=== PATIENT | male | born 1945 | race Caucasian/White ===

== ENCOUNTER 2017-10-04 18:16 | Inpatient (IN) | payer OTHER, MEDICARE, SELFPAY ==
[2017-10-04] VITALS (7 sets, daily range): BP systolic 100–127; BP diastolic 55–85; PULSE 85–93; RESP 18–28; TEMP 36.6; O2SAT 94–97; BMI 34.7; BMI 35.0
--- NOTE | 2017-10-04 20:05 | RAD_ITS ---
STUDY: X-RAY CHEST REASON FOR EXAM: Male, 72 years old. Shortness of breath TECHNIQUE: A single frontal view of the chest was obtained. COMPARISON: September 30, 2017 FINDINGS: The lungs are underaerated. There is dense opacity in the mid and lower left lung. The left costophrenic angle is obscured. There is mild enlargement of the cardiac silhouette. Sternotomy wires are present. The mediastinum and hilar regions are unremarkable. The central vessels are indistinct. An aortic stent graft is again seen in the thoracic aorta. There are diffuse degenerative changes of the visualized thoracic spine. There are surgical clips in the right axilla. There is no demonstrated abnormality of the visualized upper abdomen. RAD/Chest 1 View (Portable) IMPRESSION: There are increased opacities in the mid and lower left lung, and consolidation/pneumonia may be present. There is likely a small left effusion. There is stable mild enlargement of the cardiac silhouette with vascular congestion. Electronically Signed: Hilda Chandler MD at 21:11 EST Tel Direct: [phone], Service support ,
--- NOTE | 2017-10-04 20:05 | EKG12_ITS ---
Test Reason : SOB Blood Pressure : / mmHG Vent. Rate : 085 BPM Atrial Rate : 085 BPM P-R Int : 194 ms QRS Dur : 132 ms QT Int : 418 ms P-R-T Axes : 025 -52 048 degrees QTc Int : 497 ms Sinus rhythm with occasional Premature ventricular complexes Right bundle branch block Left anterior fascicular block Bifascicular block Abnormal ECG Confirmed by CONSUELO SANTOS, KILLIAN ([id number]), editor & co founder DOUG ROSALES ([id number] on 10/07/2017 3:02:53 PM Referred By: KASH Confirmed By:KILLIAN CORDERO MD
[2017-10-04] MEDS: 0.9% Normal Saline 1,000 ML 150 ML IV (20:16)
[2017-10-04 20:18] LABS: Absolute Lymphocyte Count 1.82 X10^3/ul (0.83-4.51); Basophil# 0.03 X10^3/uL; Basophil% 0.2 % (0-1); Eosinophil# 0.13 X10^3/uL; Hematocrit 43.4 % (40-54); Hemoglobin 14.4 g/dl (13.0-16.5); Lymphocyte # 1.82 X10^3/ul (4.0); Lymphocyte % 13.8 % (19-41); Mean Corp Hgb Conc 33.2 g/gl (32-36); Mean Corpuscular Hgb 30.2 pg (27.0-32.0); Mean Platelet Vol. 9.6 fl (6.2-12.0); Monocyte% 8.3 % (0-10); Neutrophil # 10.01 X10^3/uL (2.7-7.7); Neutrophil % 75.8 % (47-70); Platelet Count 276 K/mm3 (150-450); RBC Distribution Width CV 15.2 % (11.6-14.6); RBC Distribution Width SD 50.8 fl (35.1-43.9); Red Blood Count 4.77 M/mm3 (4.6-6.2); White Blood Count 13.2 K/mm3 (4.4-11.0)
[2017-10-04 20:30] LABS: Lactic Acid 1.2 mmol/L (0.4-2.0)
[2017-10-04 20:32] LABS: Anion Gap 9 (5-15); BUN 20 mg/dL (7-18); BUN/Creat Ratio 16.3 RATIO (10-20); Calcium,Total 8.4 mg/dL (8.5-10.1); Chloride 105 mmol/L (98-107); Creatinine, Serum 1.23 mg/dL (0.70-1.30); EST Glomerular Filtration Rate 61 mL/min (>60); Est Glom Filt Rate - Afr Amer 74 mL/min (>60); Estimated Creatinine Clearance 64.69 ml/min; Glucose 122 mg/dL (70-110); Potassium 3.7 mmol/L (3.5-5.1); Sodium Level 141 mmol/L (136-145)
[2017-10-04 20:53] LABS: BNP,B-Type NATRIURETIC PEPTIDE 156.8 pg/mL (0-100)
[2017-10-04 20:58] LABS: POSITIVE COUNT NO; POSITIVE DIFFERENTIAL NO; POSITIVE MORPHOLOGY NO
--- NOTE | 2017-10-04 21:26 | ED.VISSUMM ---
- ER Visit Summary Date of Service: 10/04/17 Chief Complaint: [Shortness of breath and hypotension] History of Present Illness: The patient is a 72 M [since the emergency department with complaint of not feeling well. Patient apparently had a low blood pressure at home of 88/50. Patient was just discharged from the hospital 2 days ago after being treated for sepsis and pneumonia. Patient states that his fever started coming back today and got up to 99 and was climbing that is when his gave him some Tylenol. Patient continues to cough but the sputum seems to be mostly clear. To take his Levaquin at home. Patient denies any chest pain. Physical Examination: [HEENT-PERRLA, EOMI. Cranial nerves II through XII grossly intact. TMs clear. Mucous membranes moist. No adenopathy. Cardiovascular-regular rate and rhythm without murmur or ectopy Lungs-diminished in both bases left greater than right. Patient has rales in both bases. Mild tachypnea, no accessory muscle use or retractions. Abdomen-normoactive bowel sounds, soft, nontender, no rebound or rigidity, no peritoneal signs. Extremities-intact ?4, normal range of motion, normal pulses, atraumatic] Test Results: [EKG on arrival showed a sinus rhythm with a ventricular rate of 85 bpm with occasional PVCs. Patient had a right bundle branch block and a left anterior fascicular block noted. CBC with differential showed a white count of 13, hemoglobin 14, hematocrit 43, platelets 276. Chemistry is unremarkable. Troponin was less than 0.02. Lactate was 1.2. BNP was 156. Chest x-ray showed increased opacities of the left lower lung with pneumonia/consolidation and bilateral small effusions noted.] Emergency Department Course and Treatment: [Patient was treated with Rocephin, Zithromax, and Levaquin.] Treatment Plan: [Patient will be readmitted for worsening pneumonia and failed outpatient therapy.] Disposition: Admit [] Impression: [Pneumonia now healthcare acquired-failed outpatient therapy Hypotension] This note was generated with [employer] dictation software. It may contain incorrect words, spelling, and punctuation that were not noted in review of the chart prior to signing ED Disposition - Plan for ED Patient: Chief Complaint: Shortness of Breath Referrals: Daniel Foster [Primary Care Provider] -
--- NOTE | 2017-10-04 21:29 | ED.DCSUM_ITS ---
- ER Visit Summary Date of Service: 10/04/17 Chief Complaint: [Shortness of breath and hypotension] History of Present Illness: The patient is a 72 M [since the emergency department with complaint of not feeling well. Patient apparently had a low blood pressure at home of 88/50. Patient was just discharged from the hospital 2 days ago after being treated for sepsis and pneumonia. Patient states that his fever started coming back today and got up to 99 and was climbing that is when his gave him some Tylenol. Patient continues to cough but the sputum seems to be mostly clear. To take his Levaquin at home. Patient denies any chest pain. Physical Examination: [HEENT-PERRLA, EOMI. Cranial nerves II through XII grossly intact. TMs clear. Mucous membranes moist. No adenopathy. Cardiovascular-regular rate and rhythm without murmur or ectopy Lungs-diminished in both bases left greater than right. Patient has rales in both bases. Mild tachypnea, no accessory muscle use or retractions. Abdomen-normoactive bowel sounds, soft, nontender, no rebound or rigidity, no peritoneal signs. Extremities-intact ?4, normal range of motion, normal pulses, atraumatic] Test Results: [EKG on arrival showed a sinus rhythm with a ventricular rate of 85 bpm with occasional PVCs. Patient had a right bundle branch block and a left anterior fascicular block noted. CBC with differential showed a white count of 13, hemoglobin 14, hematocrit 43, platelets 276. Chemistry is unremarkable. Troponin was less than 0.02. Lactate was 1.2. BNP was 156. Chest x-ray showed increased opacities of the left lower lung with pneumonia/ consolidation and bilateral small effusions noted.] Emergency Department Course and Treatment: [Patient was treated with Rocephin, Zithromax, and Levaquin.] Treatment Plan: [Patient will be readmitted for worsening pneumonia and failed outpatient therapy.] Disposition: Admit [] Impression: [Pneumonia now healthcare acquired-failed outpatient therapy Hypotension] This note was generated with [employer] dictation software. It may contain incorrect words, spelling, and punctuation that were not noted in review of the chart prior to signing ED Disposition - Plan for ED Patient: Chief Complaint: Shortness of Breath Referrals: Daniel Foster [Primary Care Provider] -
--- NOTE | 2017-10-04 21:35 | HP.PCM_ITS ---
Problem List (1) Dyslipidemia Status: Chronic (2) Essential (primary) hypertension Status: Chronic (3) H/O thoracic aortic aneurysm repair Status: Chronic (4) Obesity (BMI 30.0-34.9) Status: Chronic History of Present Illness Date of Admission: 10/04/17 Chief Complaint: Fever, decreased BP at home, recent discharge w/ CAP The patient is a 72 y/o M w/ PMHx: Obesity, HLD, HLT, Hx Thoracic Aortic Aneurysm s/p repair who presents to the [facility] ED on 10/04/17 w/ history of being released the day prior following evaluation and treatment for PNA, Sepsis w/ onset today recurrent fevers, worsened dyspnea and lower BPs at home (SBP 80s) and continued ongoing coughing although not markedly productive. In the ED VS T 97.9 (last tylenol 1600), HR 86, BP 100/55-->110/77, RR 28-->20, 94% on RA, CBC w/ WBC 13.2, Hgb 14.4, Plts 276 with L shift, BMP w/ BUN/Cr 20/1.23, Glucose 122 , LA 1.2, trop <0.02, BNP 156.8, CXR w/ increased opacities mid and lower left lung and consolidation possibly present, small left effusion, stable cardiac silhouette with mild vascular congestion. In the ED patient administered Vanc and Zosyn. Past Medical History Past Medical History (Chronic Problems): Chronic Problems Obesity (BMI 30.0-34.9) (Chronic) Dyslipidemia (Chronic) Essential (primary) hypertension (Chronic) H/O thoracic aortic aneurysm repair (Chronic) Allergies No Known Allergies Allergy (Verified 10/04/17 18:18) Home Medications: Ambulatory Orders Medication Instructions Recorded Amlodipine [Norvasc] 10 mg PO DAILY 09/27/16 Ascorbic Acid [Vitamin C] 1,000 mg PO DAILY 09/27/16 Aspirin [Aspirin, Baby] 81 mg PO DAILY@0800 09/27/16 Atorvastatin Calcium [Lipitor] 20 mg PO QHS 09/27/16 Cabergoline 2 tab PO TUFR 09/27/16 Losartan/Hydrochlorothiazide 1 each PO BREAKFAST 09/27/16 [Losartan-Hctz 100-25 mg Tab] Metoprolol Tartrate [Lopressor 50 mg PO BID 09/27/16 (beta ashutosh)] Multivitamins,Therapeutic 1 tablet PO DAILY 09/27/16 [Multivitamin] Gill-3 Fatty Acids/Fish Oil 1 each PO DAILY 09/27/16 [Gill 3 1,000 mg Softgel] Acetaminophen [Tylenol Tablet] 650 mg PO Q6H PRN PRN tablet 10/02/17 Guaifenesin [Mucinex] 1,200 mg PO BID #20 tablet 10/02/17 Levofloxacin [Levaquin] 750 mg PO DAILY #5 tablet 10/02/17 Potassium Chloride [K-Dur] 20 meq PO BIDCM #60 tablet 10/02/17 Surgical History: - - TAA repair Psychiatric History: No pertinent psych hx Lives: Spouse/ Significant Other Smoking Status: Former smoker Tobacco Use: Non-smoker Alcohol: None Drugs: None - *Family History Maternal History Items: No pertinent history Paternal History Items: No pertinent history Review of Systems Constitutional: Reports: Anorexia, Chills, Fever, Malaise, Weakness, Fatigue. Denies: Weight Change HEENT: Denies: Head Aches, Sinus Congestion, Sinus Drainage Cardiovascular: Denies: Chest Pain, Palpitations Respiratory: Reports: Cough, Shortness of Breath, Shortness of breath at rest, Shortness of breath upon exertion, Sputum production Gastrointestinal: Denies: Abdominal Pain, Nausea, Vomiting Genitourinary: Denies: Dysuria Musculoskeletal: Denies: Joint Pain, Joint Tenderness Skin: Denies: Rash, Wounds Neurological: Denies: Numbness, Tingling, Focal weakness Psychiatric: Denies: Anxiety, Depression, Homicidal Ideations, Suicidal Ideations Hematologic/ Lymphatic: Denies: Easy Bruising, Easy Bleeding VTE Information - Inpt Only VTE Present on Admission: No VTE Mechan Device Prophylaxis: SCD's VTE Pharm Prophylaxis ordered?: Yes Subjective: Seated upright in the ED bed, fatigued appearance, NAD, BP improved. Objective: Physical Examination: General: awake, alert, oriented x 3 and cooperative, seated upright in the ED bed in no apparent distress. Skin: normal color, turgor, no icterus, cyanosis. HEENT: AT/NC, EOMI, PERRLA, dry MM, lower lip healing/crusted cold sore, BL nare irritation, crusted, no carotid bruits or JVD noted. Lungs: Diminished BS, > L mid to base, moderate effort, anterior mild distant end expiratory wheeze, soft. Heart: Regular rate and rhythm; no gallop, rub audible. Abdomen: soft, obese, NTTP, ND, normal BS, no HSM. Extremities: no cyanosis, clubbing, BL LE ankle edema. Neurological: patient awake, alert, oriented x 3; cognitive function intact; pupils equally reactive to light and accomodation; cranial nerves II-XII grossly normal, moving all 4 extremities, no focal deficits, strength severely globally decreased secondary to acute presentation. Psychiatric: affect appears fatigued, no acute evidence of depressive or anxiety feelings. - Physical Exam Vital Signs Temp Pulse Resp BP Pulse Ox 97.9 F 86 20 110/77 94 10/04/17 18:16 10/04/17 20:16 10/04/17 20:16 10/04/17 20:16 10/04/17 20:16 Oxygen Delivery Method Room Air Weight: 285 lb Body Mass Index (BMI) 34.7 Laboratory Tests Past 24 Hrs 10/04/17 10/04/17 10/04/17 18:48 18:48 18:48 WBC 13.2 H RBC 4.77 Hgb 14.4 Hct 43.4 MCV 91.0 MCH 30.2 MCHC 33.2 RDW 15.2 H RDW Differential 50.8 H Plt Count 276 MPV 9.6 Immature Gran % (Auto) 0.900 Neut % (Auto) 75.8 H Lymph % (Auto) 13.8 L Hardin % (Auto) 8.3 Eos % (Auto) 1.0 Baso % (Auto) 0.2 Absolute Neuts (auto) 10.0 H Absolute Lymphs (auto) 1.82 Total Counted Not Reportable Sodium 141 Potassium 3.7 Chloride 105 Carbon Dioxide 27.0 Anion Gap 9 BUN 20 H Creatinine 1.23 Estim Creat Clear Calc 64.69 Est GFR (MDRD) Af Amer 74 Est GFR (MDRD) Non-Af 61 BUN/Creatinine Ratio 16.3 Glucose 122 H Lactic Acid 1.2 Calcium 8.4 L Troponin I < 0.02 B-Natriuretic Peptide 10/04/17 18:48 WBC RBC Hgb Hct MCV MCH MCHC RDW RDW Differential Plt Count MPV Immature Gran % (Auto) Neut % (Auto) Lymph % (Auto) Hardin % (Auto) Eos % (Auto) Baso % (Auto) Absolute Neuts (auto) Absolute Lymphs (auto) Total Counted Sodium Potassium Chloride Carbon Dioxide Anion Gap BUN Creatinine Estim Creat Clear Calc Est GFR (MDRD) Af Amer Est GFR (MDRD) Non-Af BUN/Creatinine Ratio Glucose Lactic Acid Calcium Troponin I B-Natriuretic Peptide 156.8 H Assessment/Plan The patient is a 72 y/o M w/ PMHx: Obesity, HLD, HLT, Hx Thoracic Aortic Aneurysm s/p repair who presents to the [facility] ED on 10/04/17 w/ history of being released the day prior following evaluation and treatment for PNA, Sepsis w/ onset today recurrent fevers, worsened dyspnea and lower BPs at home (SBP 80s) and continued ongoing coughing although not markedly productive. (1) Recent Sepsis Admission secondary to Streptococcal PNA w/ Streptococcal Bacteremia, Presents w/ Worsened Status s/p Discharge, (Hypotension, Febrile, Increased WBC w/ L shift), Although < 5 days, Treat for HCAP: In the ED VS T 97.9 (last tylenol 1600), HR 86, BP 100/55-->110/77, RR 28-->20, 94% on RA, CBC w/ WBC 13.2, Hgb 14.4, Plts 276 with L shift, BMP w/ BUN/Cr 20/1.23, Glucose 122 , LA 1.2, trop <0.02, BNP 156.8, CXR w/ increased opacities mid and lower left lung and consolidation possibly present, small left effusion, stable cardiac silhouette with mild vascular congestion. Will admit to [facility], maintain on oxygen with wean as tolerated to room air, continue ATC duonebs, PRN albuterol, maintained on IV Zosyn and Vancomycin, HOB, IS parameters, had recent sputum and urine antigens performed but given worsened status will repeat. Requested additionally repeat Bld cx x 2 obtained in the ED. Will need once appropriate AM oxygenation trial for discharge planning daily. Will additionally obtain respiratory viral panel. (2) Hypertension: Holding home regimen given hypotension upon presentation, add back once appropriate. (3) Hyperlipidemia: Continue home statin regimen. (4) Hx Thoracic Aortic Aneurysm: s/p repair. (5) Obesity: Weight loss and lifestyle changes encouraged. (6) DVT Prophylaxis: SCDs, lovenox.
[2017-10-04] MEDS: Ceftriaxone 1 GM/50 ML BAG IV (22:01)
[2017-10-05] VITALS (18 sets, daily range): BP systolic 95–109; BP diastolic 64–70; PULSE 64–104; RESP 18–26; TEMP 36.4–37; O2SAT 93–97
[2017-10-05] MEDS: guaiFENesin 1,200 MG Tablet 1200 MG PO ×3 (00:08→22:02)
[2017-10-05] MEDS: Famotidine 20 MG Tablet PO ×3 (00:08→22:02)
[2017-10-05] MEDS: Piperacil/Tazobactam 3.375 GM/50 ML ML IV ×3 (01:35→22:03)
[2017-10-05] MEDS: Ipratropium/Albuterol Sulfate 3 ML AMPUL.NEB INHALATION ×7 (03:28→22:20)
[2017-10-05 05:48] LABS: Hematocrit 39.2 % (40-54); Hemoglobin 13.1 g/dl (13.0-16.5); Mean Corp Hgb Conc 33.4 g/gl (32-36); Mean Corpuscular Hgb 30.2 pg (27.0-32.0); Mean Corpuscular Volume 90.3 fL (80-94); Mean Platelet Vol. 9.2 fl (6.2-12.0); Platelet Count 281 K/mm3 (150-450); RBC Distribution Width CV 15.3 % (11.6-14.6); RBC Distribution Width SD 50.1 fl (35.1-43.9); Red Blood Count 4.34 M/mm3 (4.6-6.2); White Blood Count 13.3 K/mm3 (4.4-11.0)
[2017-10-05 05:49] LABS: Scan Indicated on CBC? Y/N NO
[2017-10-05 06:05] LABS: Anion Gap 9 (5-15); BUN 16 mg/dL (7-18); BUN/Creat Ratio 16.1 RATIO (10-20); Calcium,Total 8.1 mg/dL (8.5-10.1); Chloride 103 mmol/L (98-107); Creatinine, Serum 0.99 mg/dL (0.70-1.30); EST Glomerular Filtration Rate 78 mL/min (>60); Est Glom Filt Rate - Afr Amer 95 mL/min (>60); Estimated Creatinine Clearance 80.37 ml/min; Glucose 110 mg/dL (70-110); Potassium 3.3 mmol/L (3.5-5.1); Sodium Level 140 mmol/L (136-145)
[2017-10-05] MEDS: Aspirin 81 MG TAB.CHEW PO (08:05)
[2017-10-05] MEDS: Multivitamins,Therapeutic Tablet 1 TABLET PO (08:05)
--- NOTE | 2017-10-05 09:17 | CT_ITS ---
STUDY: CT CHEST WITHOUT CONTRAST REASON FOR EXAM: Male, 72 years old. Pleural effusion RADIATION DOSAGE (If Supplied By Facility): CTDIvol = ( 20.06 ) mGy, DLP = ( 716.95 ) mGycm TECHNIQUE: Transaxial imaging was performed without the administration of intravenous contrast material. Multiplanar coronal and sagittal images were reformatted. Individualized dose optimization techniques were used for this CT. COMPARISON: None. FINDINGS: Left lower lung consolidation. Small to moderate loculated left pleural effusion. Normal heart and pericardium. There are multiple small lymph nodes within the mediastinum, which are normal in size and morphology most compatible with reactive lymph hyperplasia. Normal hilar regions. Normal unenhanced pulmonary arteries. Aortic graft in place. Normal osseous structures. Patient status post sternotomy. Multiple right renal cysts. Largest visualized cyst measuring 5.[address]/Chest without Contrast IMPRESSION: Small to moderate loculated left effusion. Left lower lung consolidation. Aortic graft in place. Electronically Signed: Toñito Wilkins DO at 10:58 EST , Service support ,
--- NOTE | 2017-10-05 09:32 | NURSING ---
TRANSPORTED VIA W/C TO RADIOLOGY FOR ORDERED CHEST CT BY OTONIEL LAZAR.
[2017-10-05] MEDS: Ascorbic Acid 500 MG Tablet 1000 MG PO (10:11)
[2017-10-05] MEDS: 0.9% NaCl Peripheral Flush Adult/Peds IV (10:11)
[2017-10-05] MEDS: Enoxaparin 30 MG/0.3 ML Syringe SC (10:12)
--- NOTE | 2017-10-05 10:17 | CASEMGMT ---
RN CM Readmission Assessment: The patient is 72 yo recently admitted 09/30-10/02 with pneumonia, now presents with worsening pneumonia and failed outpatient treatment. Patient was to follow-up with PCP in 5-7 days, but became SOB with worsening cough and returned to ED. RN CM reviewed RN CM assessment from 10/01/17 and note no changes since discharged. Await spouse to bring in HPOA/LW copies. Per physician, due to clinical condition, patient may require transfer to higher level of care in PCU or ICU. RN CM will meet with patient when condition is stabilized to discuss transition planning and care coordination needs.
[2017-10-05] MEDS: 0.9% Normal Saline 1,000 ML 100 ML IV ×2 (11:56→22:03)
--- NOTE | 2017-10-05 15:31 | PCM.PROGNOTE ---
Subjective: Mr. Smith is a 72 YO male with a past medical history of hypertension, dyslipidemia, history of thoracic aortic aneurysm repair and obesity who was recently admitted to [facility] on 09/30 and discharged on 10/02 with sepsis due to community-acquired pneumonia secondary to streptococcus pneumoniae. Streptococcal urine antigen, sputum culture and blood cultures were all positive for streptococcus pneumoniae. He was discharged on Levaquin 750 mg daily. He returned to [facility] ER on 10/04 with a low blood pressure, pain in the left chest that increases with inspiration and SOB. Vital signs at presentation to the emergency room were temperature 97.9, pulse rate 93, blood pressure 100/55, respiratory rate 28 and he was 94% saturated on room air. Significant lab included an elevated white blood cell count at 13.2 with 76% neutrophils. Hemoglobin and platelets were within normal limits. Electrolytes were within normal limits but the BUN was 20 with a creatinine of 1.23. Urine for streptococcal antigen on this admission is negative. Legionella antigen is negative. The sputum had 3+ white blood cells. Sputum culture is pending. CT scan of the chest today shows a small to moderate loculated left pleural effusion with consolidation of the left lower lobe with air bronchograms. Potassium today is low at 3.3. BUN is 16 and the creatinine has improved to 0.99. He complains of pain in the left lateral chest that increases with deep breathing. Sputum is yellow in color. He denies any wheezing. He does have shortness of breath with exertion. Current blood pressure is 103/67 with a heart rate of 87 and a respiratory rate of 20. He has been using the IS and gets the float up to between 1,000 and 1,250. He is also using the Acapella. He has painful dried cold sores on the lips. Denies lightheadedness. 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 There is symmetric chest rise and there is good air exchange in the R chest which is clear to auscultaion. He is not tachypneic and has no conversational dyspnea Cardiovascular: Regular rate, Regular Rhythm, Normal S1, Normal S2, No Gallop Abdomen: Bowel Sounds Present, Soft, Non Tender, Non-Distended, Obese Extremities: No clubbing, No cyanosis, No Calf Tenderness, Edema - of the distal LE's/ankles - mild Skin: No rashes, No breakdown Neurological: Cranial nerves II-XII grossly intact, Neuro grossly intact Psych/Mental Status: Normal Affect, Appropriate Vital Signs Temp Pulse Resp BP Pulse Ox 98.3 F 87 20 103/67 93 10/05/17 14:17 10/05/17 14:17 10/05/17 14:17 10/05/17 14:17 10/05/17 14:17 Oxygen Flow Rate 1.5 Oxygen Delivery Method Room Air Weight: 287 lb 14.779 oz Body Mass Index (BMI) 35.0 Intake and Output for Last 24 Hours 10/03/17 10/04/17 10/05/17 23:59 23:59 23:59 Intake Total 2212 Output Total 475 Balance 1737 Microbiology Past 72 Hours 10/04/17 23:56 Respiratory Panel (PCR) - Final Mucosa - Nose 10/04/17 23:10 Gram Stain - Final Sputum, Expectorated/Coughed 10/05/17 00:40 Streptococcus pneumoniae Antigen (M - Final Urine, Clean Catch 10/05/17 00:40 Legionella Antigen - Final Urine, Clean Catch Laboratory Tests Past 24 Hrs 10/05/17 10/05/17 05:25 05:25 WBC 13.3 H RBC 4.34 L Hgb 13.1 Hct 39.2 L MCV 90.3 MCH 30.2 MCHC 33.4 RDW 15.3 H RDW Differential 50.1 H Plt Count 281 MPV 9.2 Sodium 140 Potassium 3.3 L Chloride 103 Carbon Dioxide 28.0 Anion Gap 9 BUN 16 Creatinine 0.99 Estim Creat Clear Calc 80.37 Est GFR (MDRD) Af Amer 95 Est GFR (MDRD) Non-Af 78 BUN/Creatinine Ratio 16.1 Glucose 110 Calcium 8.1 L Assessment/Plan Impressions 1. CAP due to streptococcus pneumoniae with recent admission on 09/30 and DC 10/02 and now readmitted due to SOB and worsening CXR. He had a BP lower than his usual but was not hypotensive and the lactic acid was negative. The creat was elevated due to dehydration but does not meet criteria for ISSAC. He does not have acute respiratory failure. 2. loculated left pleural effusion.....need to be concerned about a possible empyema 3. HTN 4. HLD 5. Hx of a thoracic Aortic aneurysm, S/P repair 6. Hypokalemia-will supplement Repeat a PA and Lateral CXR on Saturday......may need a thoracentesis to exclude empyema Check a MRSA nasal swab and if negative will DC the Vancomycin. Levaquin and Rocephin both cover strep I do not feel like he has a HCAP.....I think this is an evolution of the strep PNA
[2017-10-05 17:39] LABS: M R Staph aureus DNA By PCR Negative (Negative); Probe Check PASS; Specimen Processing Control PASS
[2017-10-05] MEDS: Acyclovir 5% Tube 1 APPLIC TOPICAL ×2 (18:30→22:03)
[2017-10-05] MEDS: Atorvastatin Calcium 20 MG Tablet PO (22:02)
[2017-10-06] VITALS (15 sets, daily range): BP systolic 109–123; BP diastolic 68–71; PULSE 80–91; RESP 18–20; TEMP 36.1–37.2; O2SAT 93–96
[2017-10-06] MEDS: Ipratropium/Albuterol Sulfate 3 ML AMPUL.NEB INHALATION ×3 (02:45→11:08)
[2017-10-06] MEDS: Acyclovir 5% Tube 1 APPLIC TOPICAL ×5 (05:24→22:21)
[2017-10-06] MEDS: Piperacil/Tazobactam 3.375 GM/50 ML ML IV (05:24)
[2017-10-06] MEDS: Aspirin 81 MG TAB.CHEW PO (08:46)
[2017-10-06] MEDS: Multivitamins,Therapeutic Tablet 1 TABLET PO (08:46)
[2017-10-06] MEDS: Ascorbic Acid 500 MG Tablet 1000 MG PO (10:20)
[2017-10-06] MEDS: Enoxaparin 30 MG/0.3 ML Syringe SC (10:21)
[2017-10-06] MEDS: Famotidine 20 MG Tablet PO ×2 (10:21→22:20)
[2017-10-06] MEDS: guaiFENesin 1,200 MG Tablet 1200 MG PO ×2 (10:21→22:20)
--- NOTE | 2017-10-06 12:35 | PCM.PROGNOTE ---
Subjective: Mr. Smith is a 72 YO male with a past medical history of hypertension, dyslipidemia, history of thoracic aortic aneurysm repair and obesity who was recently admitted to on 09/30 and discharged on 10/02 with sepsis due to community-acquired pneumonia secondary to streptococcus pneumoniae. Streptococcal urine antigen, sputum culture and blood cultures were all positive for streptococcus pneumoniae. He was discharged on Levaquin 750 mg daily. He returned to [facility] ER on 10/04 with a low blood pressure, pain in the left chest that increases with inspiration and SOB. Streptococcal antigen in the urine is now negative the Legionella antigen is negative as well. Respiratory panel was negative. Gram stain showed 3+ white blood cells and the sputum culture is still pending. Blood cultures have no growth to date. CT scan shows consolidation of the left lower lobe with air bronchograms and a loculated left pleural effusion. He has been afebrile since admission. He is 96% saturated on room air today and his blood pressure is 109/68. Oral intake is good. Potassium was low at 3.3 on 10/05 and was supplemented. Continues to complain of some pain in the left lateral chest with deep inspiration. He is not short of breath at rest. Still with cough with yellow sputum. Nice hemoptysis. Appetite is good. The cold sores are less painful now that we have started acyclovir topically. - Physical Exam General: Alert, Oriented x3, Cooperative, No apparent distress HEENT: Atraumatic, PERRLA, EOMI Oral: Moist Mucosa Neck: Supple, No JVD, No Nodes, Trachea Midline Lungs: - - The right lung is CTA. There is aegophony in the LLL posteriorly. Breath sounds in the left lower lobe are very diminished. There is symmetric chest expansion. He has no conversational dyspnea, no accessory muscle use and he is not tachypneic at rest. There are no wheezes. Cardiovascular: Regular rate, Regular Rhythm, Normal S1, Normal S2, No Gallop Abdomen: Bowel Sounds Present, Soft, Non Tender, Non-Distended Extremities: No clubbing, No cyanosis, No Calf Tenderness, Edema Skin: No rashes, No breakdown Neurological: Cranial nerves II-XII grossly intact, Neuro grossly intact Psych/Mental Status: Normal Affect, Appropriate Vital Signs Temp Pulse Resp BP Pulse Ox 97.0 F 81 20 109/68 96 10/06/17 08:50 10/06/17 11:08 10/06/17 11:08 10/06/17 08:50 10/06/17 08:50 Oxygen Flow Rate 2 Oxygen Delivery Method Room Air Weight: 287 lb 14.779 oz Body Mass Index (BMI) 35.0 Intake and Output for Last 24 Hours 10/04/17 10/05/17 10/06/17 23:59 23:59 23:59 Intake Total 4305 375 Output Total 1235 1040 Balance 3070 -665 Microbiology Past 72 Hours 10/04/17 23:10 Gram Stain - Final Sputum, Expectorated/Coughed Respiratory Culture - Preliminary 10/04/17 23:56 Respiratory Panel (PCR) - Final Mucosa - Nose 10/05/17 00:40 Streptococcus pneumoniae Antigen (M - Final Urine, Clean Catch 10/05/17 00:40 Legionella Antigen - Final Urine, Clean Catch Laboratory Tests Past 24 Hrs 10/05/17 16:10 MRSA (PCR) Negative Assessment/Plan Impressions 1. CAP due to streptococcus pneumoniae with recent admission on 09/30 and DC 10/02 and now readmitted due to SOB and worsening CXR. He had a BP lower than his usual but was not hypotensive and the lactic acid was negative. The creat was elevated due to dehydration but does not meet criteria for ISSAC. He does not have acute respiratory failure. The MRSA nasal swab is negative 2. loculated left pleural effusion.....need to be concerned about a possible empyema 3. HTN 4. HLD 5. Hx of a thoracic Aortic aneurysm, S/P repair 6. Hypokalemia-supplemented Thoracentesis tomorrow by Dr. Nix Check PT/INR and PTT today Body fluid panel ordered on the thoracentesis fluid Recheck CMP, LDH, CBC with differential in the a.m. Discontinue q. 4 hour duo nebs but continue every 2 hour albuterol as needed Discontinue Zosyn and vancomycin because I do not believe he has HCAP. Start Levaquin 750 mg IV daily. He did not feel Levaquin, it takes 48 hours for the antibiotics to work. Discussed with patient and family and they agree to the thoracentesis. Explained about a possible empyema Consult Dr. Avila to participate in management.
[2017-10-06] MEDS: 0.9% Normal Saline 1,000 ML 100 ML IV (12:39)
--- NOTE | 2017-10-06 12:41 | ECHOD_ITS ---
Reason For Study: HTN Procedure This was a 2D Doppler, Color Flow transthoracic echocardiogram. Exam performed portable in patient room. Left Ventricle Normal LV size. Moderate concentric left ventricular hypertrophy. The estimated ejection fraction is 55 %. No regional wall motion abnormalities noted. Right Ventricle Normal RV size. Atria The left atrium is moderately enlarged. The right atrium is mildly enlarged. Mitral Valve Normal mitral valve. Tricuspid Valve Normal tricuspid valve. Mild (1+) tricuspid valve insufficiency. Pulmonary artery systolic pressure is 39 mmHg. Aortic Valve Trisinus/trileaflet aortic valve. Pulmonic Valve The pulmonic valve is not well visualized. Great Vessels Mildly dilated aortic root. The pulmonary artery is normal size. Normal inferior vena cava. Pericardium/Pleural No pericardial effusion. MMode/2D Measurements & Calculations LVIDd: 4.4 cm IVSd: 1.5 cm Ao root diam: 4.1 cm LVIDs: 3.0 cm LVPWd: 1.5 cm RVDd: 4.0 cm FS: 31.1 % LAV(MOD-bp): 103.3 ml LVAd ap4: 41.7 cm2 SV(MOD-sp4): 77.2 ml LAV(MOD-bp) Indexed: 40.0 ml/m2 EDV(MOD-sp4): 148.8 ml LAV(MOD-sp2): 92.8 ml EDV(sp4-el): 152.8 ml LAV(MOD-sp4): 109.6 ml LVAs ap4: 25.6 cm2 ESV(MOD-sp4): 71.5 ml ESV(sp4-el): 65.9 ml EF(MOD-sp4): 51.9 % EF(sp4-el): 56.8 % SV(sp4-el): 86.8 ml LA A4 area: 30.6 cm2 RA A4 area: 22.5 cm2 Time Measurements MV dec time: 0.23 sec Doppler Measurements & Calculations MV E max delgado: 63.6 cm/sec Lat Peak E' Delgado: 10.1 cm/sec Med Peak E' Delgado: 10.3 cm/sec MV A max delgado: 83.4 cm/sec E/E' lat: 6.3 E/E' med: 6.2 MV E/A: 0.76 MV V2 max: 82.0 cm/sec MV P1/2t max delgado: 69.5 cm/sec Ao V2 max: 136.3 cm/sec MV max P.7 mmHg MV P1/2t: 77.3 msec Ao max P.4 mmHg MV V2 mean: 45.5 cm/sec MV dec slope: 263.2 cm/sec2 Ao V2 mean: 86.4 cm/sec MV mean P.99 mmHg MVA(P1/2t): 2.8 cm2 Ao mean P.6 mmHg MV V2 VTI: 19.3 cm Ao V2 VTI: 23.1 cm LV V1 max: 108.8 cm/sec PA V2 max: 131.0 cm/sec TR max delgado: 295.2 cm/sec LV V1 max P.7 mmHg TR max P.9 mmHg LV V1 mean P.3 mmHg LV V1 mean: 70.7 cm/sec LV V1 VTI: 21.6 cm Interpretation Summary Normal LV size. Moderate concentric left ventricular hypertrophy. The estimated ejection fraction is 55 %. The left atrium is moderately enlarged. Mild (1+) tricuspid valve insufficiency. Ordering Physician: Delaney Ryan Referring Physician: Daniel Foster Performed By: Leonard Soriano RCS
--- NOTE | 2017-10-06 12:53 | PN_ITS ---
Subjective: Mr. Smith is a 72 YO male with a past medical history of hypertension, dyslipidemia, history of thoracic aortic aneurysm repair and obesity who was recently admitted to [facility] on 09/30 and discharged on with sepsis due to community-acquired pneumonia secondary to streptococcus pneumoniae. Streptococcal urine antigen, sputum culture and blood cultures were all positive for streptococcus pneumoniae. He was discharged on Levaquin 750 mg daily. He returned to [facility] ER on 10/04 with a low blood pressure, pain in the left chest that increases with inspiration and SOB. Streptococcal antigen in the urine is now negative the Legionella antigen is negative as well. Respiratory panel was negative. Gram stain showed 3+ white blood cells and the sputum culture is still pending. Blood cultures have no growth to date. CT scan shows consolidation of the left lower lobe with air bronchograms and a loculated left pleural effusion. He has been afebrile since admission. He is 96% saturated on room air today and his blood pressure is 109/68. Oral intake is good. Potassium was low at 3.3 on 10/05 and was supplemented. Continues to complain of some pain in the left lateral chest with deep inspiration. He is not short of breath at rest. Still with cough with yellow sputum. Nice hemoptysis. Appetite is good. The cold sores are less painful now that we have started acyclovir topically. - Physical Exam General: Alert, Oriented x3, Cooperative, No apparent distress HEENT: Atraumatic, PERRLA, EOMI Oral: Moist Mucosa Neck: Supple, No JVD, No Nodes, Trachea Midline Lungs: - - The right lung is CTA. There is aegophony in the LLL posteriorly. Breath sounds in the left lower lobe are very diminished. There is symmetric chest expansion. He has no conversational dyspnea, no accessory muscle use and he is not tachypneic at rest. There are no wheezes. Cardiovascular: Regular rate, Regular Rhythm, Normal S1, Normal S2, No Gallop Abdomen: Bowel Sounds Present, Soft, Non Tender, Non-Distended Extremities: No clubbing, No cyanosis, No Calf Tenderness, Edema Skin: No rashes, No breakdown Neurological: Cranial nerves II-XII grossly intact, Neuro grossly intact Psych/Mental Status: Normal Affect, Appropriate Vital Signs Temp Pulse Resp BP Pulse Ox 97.0 F 81 20 109/68 96 10/06/17 08:50 10/06/17 11:08 10/06/17 11:08 10/06/17 08:50 10/06/17 08:50 Oxygen Flow Rate 2 Oxygen Delivery Method Room Air Weight: 287 lb 14.779 oz Body Mass Index (BMI) 35.0 Intake and Output for Last 24 Hours 10/04/17 10/05/17 10/06/17 23:59 23:59 23:59 Intake Total 4305 375 Output Total 1235 1040 Balance 3070 -665 Microbiology Past 72 Hours 10/04/17 23:10 Gram Stain - Final Sputum, Expectorated/Coughed Respiratory Culture - Preliminary 10/04/17 23:56 Respiratory Panel (PCR) - Final Mucosa - Nose 10/05/17 00:40 Streptococcus pneumoniae Antigen (M - Final Urine, Clean Catch 10/05/17 00:40 Legionella Antigen - Final Urine, Clean Catch Laboratory Tests Past 24 Hrs 10/05/17 16:10 MRSA (PCR) Negative Assessment/Plan Impressions 1. CAP due to streptococcus pneumoniae with recent admission on 09/30 and DC and now readmitted due to SOB and worsening CXR. He had a BP lower than his usual but was not hypotensive and the lactic acid was negative. The creat was elevated due to dehydration but does not meet criteria for ISSAC. He does not have acute respiratory failure. The MRSA nasal swab is negative 2. loculated left pleural effusion.....need to be concerned about a possible empyema 3. HTN 4. HLD 5. Hx of a thoracic Aortic aneurysm, S/P repair 6. Hypokalemia-supplemented Thoracentesis tomorrow by Dr. Nix Check PT/INR and PTT today Body fluid panel ordered on the thoracentesis fluid Recheck CMP, LDH, CBC with differential in the a.m. Discontinue q. 4 hour duo nebs but continue every 2 hour albuterol as needed Discontinue Zosyn and vancomycin because I do not believe he has HCAP. Start Levaquin 750 mg IV daily. He did not feel Levaquin, it takes 48 hours for the antibiotics to work. Discussed with patient and family and they agree to the thoracentesis. Explained about a possible empyema Consult Dr. Avila to participate in management.
[2017-10-06 13:17] LABS: International Normalized Ratio 1.3; Prothrombin Time (Protime)PT. 15.9 SECONDS (11.7-14.9)
[2017-10-06 13:18] LABS: Partial Thromboplast Time 36.3 Seconds (24.1-36.2)
[2017-10-06] MEDS: Atorvastatin Calcium 20 MG Tablet PO (22:21)
[2017-10-06] MEDS: Albuterol 2.5 MG/3 ML VIAL.NEB. INHALATION (22:31)
[2017-10-07] VITALS (14 sets, daily range): BP systolic 108–132; BP diastolic 68–85; PULSE 84–91; RESP 17–20; TEMP 36.7–37.7; O2SAT 92–95
--- NOTE | 2017-10-07 | FLU_PTH ---
PATIENT: GERBER PHAN LOC: 3 U#:[id number] AGE/SX: 72/M ROOM: MS305 RE10/04/[address]: Milana Lemons MD : 1945 BED: 1 DIS: 10/12/2017 SPEC #: [id number] RECD: 10/07/17 13:07 STATUS: YARITZA REQ #: [id number] KRYSTIN: 10/07/17 00:[address]: Rosenda Ryan DEPT: CYTOLOGY RECD BY: Kade Francois ENTERED: 10/07/17 13:07 SP TYPE: Fluid OTHR DR: MD Dr. Héctor Brandt MD Dr. David Tomchak, MD Dr. Ghasem E Ashelfah, MD Tissues: THORACIC FLUID Procedures: Special Stain Group II Surgery Specimen Level IV Cytospin Fluid Comments: @ Ordering doctor for SSII edited from to DR.CSEMEN Valentine by LM at 10/07/17 1440 @ Ordering doctor for SUIV edited from to DR.CSEMEN Valentine by SUZETTEOD at 10/07/17 1440 @ Ordering doctor for CYSPIN edited from to @ by RGOOD at 10/07/17 1440 @ Submitting doctor edited from to @ by RGOOD at 10/07/17 1440 HEADER OPERATION: Ultrasound-guided thoracentesis PRE-OP DIAGNOSIS: Pleural effusion TISSUE SUBMITTED: Thoracic fluid for cytology DIAGNOSIS CYTOLOGY Thoracentesis fluid for cytology (cytospin and cell block): Negative for malignant cells. Acute inflammation. NENA:tamia 10/08/17 COMMENT Clinical correlation and appropriate follow up are necessary. CYTOLOGY STUDY Slides are reviewed. The specimen predominantly consists of neutrophils. CYTOLOGY GROSS Received is 120 ml of yellow, cloudy fluid labeled with the patient's name and and designated per the requisition as thoracentesis. Submitted for cytology preparation including cell block. / NENA:tamia 10/07/17 TC:2 CPT: 24067 , 33913
[2017-10-07] MEDS: Acyclovir 5% Tube 1 APPLIC TOPICAL ×4 (06:02→21:23)
[2017-10-07] MEDS: 0.9% Normal Saline 1,000 ML 60 ML IV (06:02)
[2017-10-07 06:28] LABS: Absolute Lymphocyte Count 1.11 X10^3/ul (0.83-4.51); Absolute Neutrophil Count 8.1 X10^3/uL (2.0-7.7); Basophil# 0.03 X10^3/uL; Basophil% 0.3 % (0-1); Eosinophil# 0.15 X10^3/uL; Eosinophils% 1.5 % (0-5); Hematocrit 36.8 % (40-54); Hemoglobin 12.4 g/dl (13.0-16.5); Lymphocyte # 1.11 X10^3/ul (4.0); Lymphocyte % 10.8 % (19-41); Mean Corp Hgb Conc 33.7 g/gl (32-36); Mean Corpuscular Hgb 30.9 pg (27.0-32.0); Mean Corpuscular Volume 91.8 fL (80-94); Mean Platelet Vol. 9.2 fl (6.2-12.0); Monocyte# 0.83 X10^3/uL; Monocyte% 8.1 % (0-10); Neutrophil # 8.11 X10^3/uL (2.7-7.7); Neutrophil % 78.8 % (47-70); Platelet Count 352 K/mm3 (150-450); RBC Distribution Width CV 15.5 % (11.6-14.6); RBC Distribution Width SD 50.6 fl (35.1-43.9); Red Blood Count 4.01 M/mm3 (4.6-6.2); White Blood Count 10.3 K/mm3 (4.4-11.0)
[2017-10-07 06:38] LABS: POSITIVE COUNT NO; POSITIVE DIFFERENTIAL NO; POSITIVE MORPHOLOGY NO
[2017-10-07 06:45] LABS: ALB/GLOB Ratio 0.4 RATIO (0.9-2.4); AST(SGOT) 50 U/L (15-37); Alanine Aminotransfer ALT/SGPT 50 U/L (12-78); Albumin, Serum 1.9 g/dL (3.4-5.0); Alkaline Phosphatase 103 U/L (45-117); Anion Gap 9 (5-15); BUN 12 mg/dL (7-18); BUN/Creat Ratio 13.1 RATIO (10-20); Calcium,Total 8.3 mg/dL (8.5-10.1); Chloride 106 mmol/L (98-107); Creatinine, Serum 0.91 mg/dL (0.70-1.30); EST Glomerular Filtration Rate 86 mL/min (>60); Est Glom Filt Rate - Afr Amer 104 mL/min (>60); Estimated Creatinine Clearance 87.44 ml/min; Globulin 4.5 g/dL (2.2-4.2); Glucose 91 mg/dL (70-110); LDH 478 U/L (87-241); Magnesium 2.2 mg/dL (1.8-2.4); Phosphorus 2.4 mg/dL (2.5-4.9); Potassium 4.3 mmol/L (3.5-5.1); Protein, Total 6.4 g/dL (6.4-8.2); Sodium Level 140 mmol/L (136-145)
--- NOTE | 2017-10-07 10:00 | US_ITS ---
ULTRASOUND GUIDED THORACENTESIS CLINICAL HISTORY: Pleural effusion. PERFORMING PHYSICIAN: Noemí Chicas MD DATE OF PROCEDURE: 10/07/2017 FAMILY PRACTICE PHYSICIAN: NONE ESTIMATED BLOOD LOSS: Negligible SPECIMENS REMOVED: 120 mL COMPLICATIONS: None CONSENT: Informed, written consent was obtained from the patient, prior to procedure and following discussion of risks, benefits, alternatives and personnel. TECHNIQUE: Patient was positioned seated on the bed. Initial imaging demonstrated left pleural effusion with linear septations. Left chest was prepared in standard, sterile fashion and anesthetized with lidocaine. A 5F Yueh needle type/catheter was advanced under direct sonographic guidance into the pleural space. Approximately 120ml of clear yellow fluid was collected. A sample was sent for Laboratory testing as ordered by the referring Clinical Service. The Yueh catheter was removed. F/U imaging demonstrated mild residual fluid. US/Thoracentesis W US IMPRESSION: Uneventful diagnostic and therapeutic ultrasound guided thoracentesis yielding 120ml of fluid. Linear septations precluded additional drainage. Electronically Signed: Brian Chicas MD at 10:46 EST , Service support ,
--- NOTE | 2017-10-07 10:17 | NURSING ---
PT TAKEN TO US AREA FOR THORACENTESIS AT APPROX 9:30 AM
--- NOTE | 2017-10-07 10:18 | RAD_ITS ---
STUDY: X-RAY CHEST REASON FOR EXAM: Male, 72 years old. Status post thoracentesis TECHNIQUE: AP COMPARISON: Same day FINDINGS: There are surgical clips in the right axilla. Persistent central pulmonary vascular congestion and interstitial thickening with consolidation in the left lung base. Left pleural effusion is mildly decreased. No pneumothorax. There is mild cardiac enlargement. Sternal wires and mediastinal surgical clips compatible with prior CABG. Normal mediastinum and thomas. Normal visualized pulmonary arteries. Aortic stent graft is present. No acute bony process. There is no demonstrated abnormality of the visualized soft tissue structures of the upper abdomen. RAD/Chest 1 View IMPRESSION: 1. No pneumothorax following left thoracentesis. 2. Left lower lobe consolidation or atelectasis. 3. Underlying CHF/vascular congestion. Electronically Signed: Brian Chicas MD at 10:51 EST , Service support ,
--- NOTE | 2017-10-07 10:18 | RAD_ITS ---
STUDY: X-RAY CHEST REASON FOR EXAM: Male, 72 years old. Status post thoracentesis TECHNIQUE: AP COMPARISON: 10/04/2017 FINDINGS: There are surgical clips in the right axilla. Persistent central pulmonary vascular congestion and interstitial thickening with consolidation in the left lung base. Left pleural effusion is mildly decreased. No pneumothorax. There is mild cardiac enlargement. Sternal wires and mediastinal surgical clips compatible with prior CABG. Normal mediastinum and thomas. Normal visualized pulmonary arteries. Aortic stent graft is present. No acute bony process. There is no demonstrated abnormality of the visualized soft tissue structures of the upper abdomen. RAD/Chest 1 View IMPRESSION: 1. No pneumothorax following left thoracentesis. 2. Left lower lobe consolidation or atelectasis. 3. Underlying CHF/vascular congestion. Electronically Signed: Brian Chicas MD at 10:44 EST , Service support ,
--- NOTE | 2017-10-07 10:34 | NURSING ---
RETURNED FROM THORACENTESIS
[2017-10-07 11:21] LABS: Body Fluid Mononuclear WBC # 0.069 10^3/uL; Body Fluid Polynuclear WBC # 2.246 10^3/uL; Body Fluid Total Cells Counted 2.315 10^3/ul; White Blood Count/Body Fluid 2.315 10^3/uL
[2017-10-07 11:42] LABS: Glucose, Body Fluid 21 mg/dL (40-70); LDH,Body Fluid 1484 Units/l (Not Establ.); Protein, Body Fluid 4.3 g/dL (Not Establ.)
[2017-10-07] MEDS: Multivitamins,Therapeutic Tablet 1 TABLET PO (11:55)
[2017-10-07] MEDS: Aspirin 81 MG TAB.CHEW PO (11:55)
[2017-10-07] MEDS: Famotidine 20 MG Tablet PO ×2 (11:56→21:23)
[2017-10-07] MEDS: Ascorbic Acid 500 MG Tablet 1000 MG PO (11:56)
[2017-10-07] MEDS: guaiFENesin 1,200 MG Tablet 1200 MG PO ×2 (11:56→21:23)
--- NOTE | 2017-10-07 12:22 | PCM.PROGNOTE ---
Subjective: Chief complaint: Follow-up after admission for fever and hypotension with recent history of streptococcal pneumonia, found to have loculated pleural effusion status post thoracentesis. Patient seen and examined. No acute events overnight. Today, he is feeling a little bit better, less short of breath. He denied cough or sputum production. Denied chest pain or palpitation. His blood pressure stabilized, remained afebrile, pulse ox is 95% on room air. - Physical Exam General: Alert, Oriented x3, Cooperative, No apparent distress HEENT: Atraumatic, PERRLA, EOMI Oral: Moist Mucosa, No Gingival or Mucosal Lesions/ Ulcerations Neck: Supple, No JVD, Negative Carotid Bruits, Trachea Midline, Thyroid Normal Size and Texture Lungs: No wheeze, No rales, Diminished, Rhonchi, - - Decreased breath sounds at the left base, scattered rhonchi. Cardiovascular: Regular rate, Regular Rhythm, Normal S1, Normal S2, PMI Normal Abdomen: Bowel Sounds Present, Soft, Non Tender, Non-Distended, No Hepato-splenomegaly Extremities: No clubbing, No cyanosis, Edema - Trace edema. Skin: No rashes, No breakdown Lymphatic: No Cervical, Supraclavicular, or Inguinal Adenopathy Neurological: Cranial nerves II-XII grossly intact, Motor Exam 5/5 strength throughout Psych/Mental Status: Normal Affect, Appropriate Vital Signs Temp Pulse Resp BP Pulse Ox 98.0 F 91 17 108/85 95 10/07/17 10:54 10/07/17 10:54 10/07/17 10:54 10/07/17 10:54 10/07/17 10:54 Oxygen Flow Rate 2 Oxygen Delivery Method Room Air Weight: 287 lb 14.779 oz Body Mass Index (BMI) 35.0 Intake and Output for Last 24 Hours 10/05/17 10/06/17 10/07/17 23:59 23:59 23:59 Intake Total 4305 2475 383 Output Total 1235 1740 425 Balance 3070 735 -42 Microbiology Past 72 Hours 10/04/17 23:10 Gram Stain - Final Sputum, Expectorated/Coughed Respiratory Culture - Preliminary 10/04/17 23:56 Respiratory Panel (PCR) - Final Mucosa - Nose 10/05/17 00:40 Streptococcus pneumoniae Antigen (M - Final Urine, Clean Catch 10/05/17 00:40 Legionella Antigen - Final Urine, Clean Catch Laboratory Tests Past 24 Hrs 10/06/17 10/07/17 10/07/17 13:00 05:10 05:10 WBC 10.3 RBC 4.01 L Hgb 12.4 L Hct 36.8 L MCV 91.8 MCH 30.9 MCHC 33.7 RDW 15.5 H RDW Differential 50.6 H Plt Count 352 MPV 9.2 Immature Gran % (Auto) 0.500 Neut % (Auto) 78.8 H Lymph % (Auto) 10.8 L [place] % (Auto) 8.1 Eos % (Auto) 1.5 Baso % (Auto) 0.3 Absolute Neuts (auto) 8.1 H Absolute Lymphs (auto) 1.11 Total Counted Not Reportable PT 15.9 H INR 1.3 APTT 36.3 H Sodium 140 Potassium 4.3 Chloride 106 Carbon Dioxide 25.0 Anion Gap 9 BUN 12 Creatinine 0.91 Estim Creat Clear Calc 87.44 Est GFR (MDRD) Af Amer 104 Est GFR (MDRD) Non-Af 86 BUN/Creatinine Ratio 13.1 Glucose 91 Calcium 8.3 L Phosphorus 2.4 L Magnesium 2.2 Total Bilirubin 1.80 H AST 50 H ALT 50 Alkaline Phosphatase 103 Lactate Dehydrogenase 478 H Total Protein 6.4 Albumin 1.9 L Globulin 4.5 H Albumin/Globulin Ratio 0.4 L Fluid Source Fluid Color Fluid Appearance Fluid WBC Fluid RBC Fluid Tot Cell Count Fld Polynuclear WBCs # Fld Polynuclear WBCs % Fluid Mononuclear WBCs Fld Mononuclear WBCs % Fl Pathologist Comment Fluid Glucose Fluid Total Protein Fluid LDH Fluid Comment 2 10/07/17 10/07/17 10:15 10:15 WBC RBC Hgb Hct MCV MCH MCHC RDW RDW Differential Plt Count MPV Immature Gran % (Auto) Neut % (Auto) Lymph % (Auto) [place] % (Auto) Eos % (Auto) Baso % (Auto) Absolute Neuts (auto) Absolute Lymphs (auto) Total Counted PT INR APTT Sodium Potassium Chloride Carbon Dioxide Anion Gap BUN Creatinine Estim Creat Clear Calc Est GFR (MDRD) Af Amer Est GFR (MDRD) Non-Af BUN/Creatinine Ratio Glucose Calcium Phosphorus Magnesium Total Bilirubin AST ALT Alkaline Phosphatase Lactate Dehydrogenase Total Protein Albumin Globulin Albumin/Globulin Ratio Fluid Source Pending Fluid Color Pending Fluid Appearance Pending Fluid WBC 2.315 Fluid RBC Pending Fluid Tot Cell Count 2.315 Fld Polynuclear WBCs # 2.246 Fld Polynuclear WBCs % 97.0 Fluid Mononuclear WBCs 0.069 Fld Mononuclear WBCs % 3.0 Fl Pathologist Comment Pending Fluid Glucose 21 L* Fluid Total Protein 4.3 Fluid LDH 1484 Fluid Comment 2 Pending Clinical Impression(s) from Imaging Studies Chest X-Ray 10/04/17 20:05 IMPRESSION: There are increased opacities in the mid and lower left lung, and consolidation/pneumonia may be present. There is likely a small left effusion. There is stable mild enlargement of the cardiac silhouette with vascular congestion. Electronically Signed: Hilda Chandler MD at 21:11 EST Tel Direct: [phone], Service support , Chest CT 10/05/17 09:17 IMPRESSION: Small to moderate loculated left effusion. Left lower lung consolidation. Aortic graft in place. Electronically Signed: Toñito Wilkins DO at 10:58 EST , Service support , Thoracentesis Ultrasound 10/07/17 10:00 IMPRESSION: Uneventful diagnostic and therapeutic ultrasound guided thoracentesis yielding 120ml of fluid. Linear septations precluded additional drainage. Electronically Signed: Brian Chicas MD at 10:46 EST , Service support , Chest X-Ray 10/07/17 10:18 IMPRESSION: 1. No pneumothorax following left thoracentesis. 2. Left lower lobe consolidation or atelectasis. 3. Underlying CHF/vascular congestion. Electronically Signed: Brian Chicas MD at 10:44 EST , Service support , Chest X-Ray 10/07/17 10:18 IMPRESSION: 1. No pneumothorax following left thoracentesis. 2. Left lower lobe consolidation or atelectasis. 3. Underlying CHF/vascular congestion. Electronically Signed: Brian Chicas MD at 10:51 EST , Service support , Assessment/Plan This is a 72 years old male patient admitted because of fever and low blood pressure with recent history of community-acquired pneumonia, discharged from the hospital 1 week ago and he was found to have loculated left-sided pleural effusion. #1 left pleural effusion: Possibly loculated. Status post thoracentesis, pleural fluid analysis is pending. He had a recent history of committee acquired pneumonia 1 week ago, was sent home on Levaquin. He received 1 dose of IV vancomycin and Zosyn, both were discontinued yesterday. At this time, is on IV Levaquin. Has been afebrile overnight, blood pressure stabilized, pulse ox is 95% on room air. White blood cell count is back to normal. Lactic acid was normal on admission. Pulmonology consulted. Plan to continue same treatment. #2 recent history of pneumococcal community acquired pneumonia: Again, he is on IV Levaquin as above, has been afebrile, blood pressure stabilized. Pulse ox is normal on room air. Vital to count is back to normal. Blood culture showed no growth in 48 hours. Pneumococcal and Legionella antigen were negative this admission, pneumococcal antigen was positive during last admission. Sputum cultures pending. Respiratory panel for viruses were negative. Plan to continue same treatment. #3 hypokalemia: Replaced and corrected, today's potassium is 4.3. #4 hypertension: Blood pressure stabilized, reportedly it was low at home. Norvasc, HCTZ and losartan held. #5 history of thoracic aortic aneurysm: Status post repair, stable, no acute issues. #6 hyperlipidemia: Continue statins. #7 DVT prophylaxis: Subcu Lovenox, SCDs. This note was generated with [employer] software. It may contain incorrect words, spelling, and punctuation that were not noted in checking the note before signing.
--- NOTE | 2017-10-07 12:31 | PN_ITS ---
Subjective: Chief complaint: Follow-up after admission for fever and hypotension with recent history of streptococcal pneumonia, found to have loculated pleural effusion status post thoracentesis. Patient seen and examined. No acute events overnight. Today, he is feeling a little bit better, less short of breath. He denied cough or sputum production. Denied chest pain or palpitation. His blood pressure stabilized, remained afebrile, pulse ox is 95% on room air. - Physical Exam General: Alert, Oriented x3, Cooperative, No apparent distress HEENT: Atraumatic, PERRLA, EOMI Oral: Moist Mucosa, No Gingival or Mucosal Lesions/ Ulcerations Neck: Supple, No JVD, Negative Carotid Bruits, Trachea Midline, Thyroid Normal Size and Texture Lungs: No wheeze, No rales, Diminished, Rhonchi, - - Decreased breath sounds at the left base, scattered rhonchi. Cardiovascular: Regular rate, Regular Rhythm, Normal S1, Normal S2, PMI Normal Abdomen: Bowel Sounds Present, Soft, Non Tender, Non-Distended, No Hepato- splenomegaly Extremities: No clubbing, No cyanosis, Edema - Trace edema. Skin: No rashes, No breakdown Lymphatic: No Cervical, Supraclavicular, or Inguinal Adenopathy Neurological: Cranial nerves II-XII grossly intact, Motor Exam 5/5 strength throughout Psych/Mental Status: Normal Affect, Appropriate Vital Signs Temp Pulse Resp BP Pulse Ox 98.0 F 91 17 108/85 95 10/07/17 10:54 10/07/17 10:54 10/07/17 10:54 10/07/17 10:54 10/07/17 10:54 Oxygen Flow Rate 2 Oxygen Delivery Method Room Air Weight: 287 lb 14.779 oz Body Mass Index (BMI) 35.0 Intake and Output for Last 24 Hours 10/05/17 10/06/17 10/07/17 23:59 23:59 23:59 Intake Total 4305 2475 383 Output Total 1235 1740 425 Balance 3070 735 -42 Microbiology Past 72 Hours 10/04/17 23:10 Gram Stain - Final Sputum, Expectorated/Coughed Respiratory Culture - Preliminary 10/04/17 23:56 Respiratory Panel (PCR) - Final Mucosa - Nose 10/05/17 00:40 Streptococcus pneumoniae Antigen (M - Final Urine, Clean Catch 10/05/17 00:40 Legionella Antigen - Final Urine, Clean Catch Laboratory Tests Past 24 Hrs 10/06/17 10/07/17 10/07/17 13:00 05:10 05:10 WBC 10.3 RBC 4.01 L Hgb 12.4 L Hct 36.8 L MCV 91.8 MCH 30.9 MCHC 33.7 RDW 15.5 H RDW Differential 50.6 H Plt Count 352 MPV 9.2 Immature Gran % (Auto) 0.500 Neut % (Auto) 78.8 H Lymph % (Auto) 10.8 L [place] % (Auto) 8.1 Eos % (Auto) 1.5 Baso % (Auto) 0.3 Absolute Neuts (auto) 8.1 H Absolute Lymphs (auto) 1.11 Total Counted Not Reportable PT 15.9 H INR 1.3 APTT 36.3 H Sodium 140 Potassium 4.3 Chloride 106 Carbon Dioxide 25.0 Anion Gap 9 BUN 12 Creatinine 0.91 Estim Creat Clear Calc 87.44 Est GFR (MDRD) Af Amer 104 Est GFR (MDRD) Non-Af 86 BUN/Creatinine Ratio 13.1 Glucose 91 Calcium 8.3 L Phosphorus 2.4 L Magnesium 2.2 Total Bilirubin 1.80 H AST 50 H ALT 50 Alkaline Phosphatase 103 Lactate Dehydrogenase 478 H Total Protein 6.4 Albumin 1.9 L Globulin 4.5 H Albumin/Globulin Ratio 0.4 L Fluid Source Fluid Color Fluid Appearance Fluid WBC Fluid RBC Fluid Tot Cell Count Fld Polynuclear WBCs # Fld Polynuclear WBCs % Fluid Mononuclear WBCs Fld Mononuclear WBCs % Fl Pathologist Comment Fluid Glucose Fluid Total Protein Fluid LDH Fluid Comment 2 10/07/17 10/07/17 10:15 10:15 WBC RBC Hgb Hct MCV MCH MCHC RDW RDW Differential Plt Count MPV Immature Gran % (Auto) Neut % (Auto) Lymph % (Auto) [place] % (Auto) Eos % (Auto) Baso % (Auto) Absolute Neuts (auto) Absolute Lymphs (auto) Total Counted PT INR APTT Sodium Potassium Chloride Carbon Dioxide Anion Gap BUN Creatinine Estim Creat Clear Calc Est GFR (MDRD) Af Amer Est GFR (MDRD) Non-Af BUN/Creatinine Ratio Glucose Calcium Phosphorus Magnesium Total Bilirubin AST ALT Alkaline Phosphatase Lactate Dehydrogenase Total Protein Albumin Globulin Albumin/Globulin Ratio Fluid Source Pending Fluid Color Pending Fluid Appearance Pending Fluid WBC 2.315 Fluid RBC Pending Fluid Tot Cell Count 2.315 Fld Polynuclear WBCs # 2.246 Fld Polynuclear WBCs % 97.0 Fluid Mononuclear WBCs 0.069 Fld Mononuclear WBCs % 3.0 Fl Pathologist Comment Pending Fluid Glucose 21 L* Fluid Total Protein 4.3 Fluid LDH 1484 Fluid Comment 2 Pending Clinical Impression(s) from Imaging Studies Chest X-Ray 10/04/17 20:05 IMPRESSION: There are increased opacities in the mid and lower left lung, and consolidation/pneumonia may be present. There is likely a small left effusion. There is stable mild enlargement of the cardiac silhouette with vascular congestion. Electronically Signed: Hilda Chandler MD at 21:11 EST Tel Direct: [phone], Service support , Chest CT 10/05/17 09:17 IMPRESSION: Small to moderate loculated left effusion. Left lower lung consolidation. Aortic graft in place. Electronically Signed: Toñito Wilkins DO at 10:58 EST , Service support , Thoracentesis Ultrasound 10/07/17 10:00 IMPRESSION: Uneventful diagnostic and therapeutic ultrasound guided thoracentesis yielding 120ml of fluid. Linear septations precluded additional drainage. Electronically Signed: Brian Chicas MD at 10:46 EST , Service support , Chest X-Ray 10/07/17 10:18 IMPRESSION: 1. No pneumothorax following left thoracentesis. 2. Left lower lobe consolidation or atelectasis. 3. Underlying CHF/vascular congestion. Electronically Signed: Brian Chicas MD at 10:44 EST , Service support , Chest X-Ray 10/07/17 10:18 IMPRESSION: 1. No pneumothorax following left thoracentesis. 2. Left lower lobe consolidation or atelectasis. 3. Underlying CHF/vascular congestion. Electronically Signed: Brian Chicas MD at 10:51 EST , Service support , Assessment/Plan This is a 72 years old male patient admitted because of fever and low blood pressure with recent history of community-acquired pneumonia, discharged from the hospital 1 week ago and he was found to have loculated left-sided pleural effusion. #1 left pleural effusion: Possibly loculated. Status post thoracentesis, pleural fluid analysis is pending. He had a recent history of committee acquired pneumonia 1 week ago, was sent home on Levaquin. He received 1 dose of IV vancomycin and Zosyn, both were discontinued yesterday. At this time, is on IV Levaquin. Has been afebrile overnight, blood pressure stabilized, pulse ox is 95% on room air. White blood cell count is back to normal. Lactic acid was normal on admission. Pulmonology consulted. Plan to continue same treatment. #2 recent history of pneumococcal community acquired pneumonia: Again, he is on IV Levaquin as above, has been afebrile, blood pressure stabilized. Pulse ox is normal on room air. Vital to count is back to normal. Blood culture showed no growth in 48 hours. Pneumococcal and Legionella antigen were negative this admission, pneumococcal antigen was positive during last admission. Sputum cultures pending. Respiratory panel for viruses were negative. Plan to continue same treatment. #3 hypokalemia: Replaced and corrected, today's potassium is 4.3. #4 hypertension: Blood pressure stabilized, reportedly it was low at home. Norvasc, HCTZ and losartan held. #5 history of thoracic aortic aneurysm: Status post repair, stable, no acute issues. #6 hyperlipidemia: Continue statins. #7 DVT prophylaxis: Subcu Lovenox, SCDs. This note was generated with [employer] software. It may contain incorrect words, spelling, and punctuation that were not noted in checking the note before signing.
[2017-10-07 12:42] LABS: Appearance/Body Fluid SL CLDY; Auto B Fluid Analyzer BKGD Ct COUNTS W/IN LIMITS (W/IN LIMITS); Body Fluid QC Type(s) BF2Q; Color/Body Fluid YELLOW; Red Cell Count/Body Fluid 124 /mm3; Source- Body Fluid THORACENTESIS
--- NOTE | 2017-10-07 13:48 | CASEMGMT ---
RN LUIS ARMANDO Face to Face with patient for initial transition planning/care coordination assessment. RN CM introduced self and role at [facility]. Patient sitting in chair, alert and oriented. Patient willing to participate in assessment and is able to answer all questions appropriately. Care providers, pharmacy, and demographics verified. See link attached. Patient wishes to discharge home, denies need for home health at this time. Patient states he has no further needs or concerns at this time. CM to follow for discharge planning needs that may arise. Disposition Plan: Patient to discharge home with family support and follow-up plans in place.
--- NOTE | 2017-10-07 14:33 | CON.PCM_ITS ---
Problem List (1) CAP (community acquired pneumonia) Status: Acute Qualifiers: Laterality: left Lung location: lower lobe of lung Qualified Code(s): J18.1 - Lobar pneumonia, unspecified organism (2) Sepsis Status: Acute Reason for Consult Date of Consultation: 10/06/17 - strep pneumonia, loculated pleural effusion Reason for Consultation: strep pneumonia, loculated pleural effusion History of Present Illness: The patient is a 72 year old M who presented to the emergency department with complaints of low blood pressure and cough. The patient was recently treated here at [facility] for pneumonia and was discharged home October 02, and return to the emergency department on October 04. The patient reports that he continued to have fever and chills. He had appetite loss but denied nausea or vomiting. He reports that his cough was producing sputum that was the color of an old shawanda Chevy but has since began to produce clear to pale yellow sputum. He denies any wheezing, chest tightness or chest pressure. Upon presentation lab work was drawn in the ED and showed a white blood cell count of 13. Laboratories were otherwise unimpressive. Chest x-ray did show increase in opacities of the left lower lobe. At the time he was considered to have healthcare acquired pneumonia and failed Levaquin therapy, however he had only been on Levaquin for 2 days. He states that previous to the last hospital admission 1 week ago, he had a fairly healthy life. He denies ever being treated for pneumonia or bronchitis previously. He had had a few surgeries for an aortic aneurysm. He reports that he has a previous smoking history that was brief, but was quite extensive. When he was in his early 20s he smoked 5 packs per day for 2 years. He was also a heavy drinker for approximately 10 years from his 20s-30s. He now reports an occasional social drink, for example has probably had one beer in the last 6 months. He has never seen a occasional babysitter. He has never participated in complete pulmonary function testing. He does not report any family history of COPD or asthma. He does have a family history significant for multiple family members having different types of cancer including lung, breast, colon and bone cancer. Past Medical History Past Medical History (Chronic Problems): Chronic Problems Obesity (BMI 30.0-34.9) (Chronic) Dyslipidemia (Chronic) Essential (primary) hypertension (Chronic) H/O thoracic aortic aneurysm repair (Chronic) Allergies No Known Allergies Allergy (Verified 10/04/17 18:18) Home Medications: Ambulatory Orders Medication Instructions Recorded Amlodipine [Norvasc] 10 mg PO DAILY 09/27/16 Ascorbic Acid [Vitamin C] 1,000 mg PO DAILY 09/27/16 Aspirin [Aspirin, Baby] 81 mg PO DAILY@0800 09/27/16 Atorvastatin Calcium [Lipitor] 20 mg PO QHS 09/27/16 Cabergoline 2 tab PO TUFR 09/27/16 Losartan/Hydrochlorothiazide 1 each PO BREAKFAST 09/27/16 [Losartan-Hctz 100-25 mg Tab] Metoprolol Tartrate [Lopressor 50 mg PO BID 09/27/16 (beta ashutosh)] Multivitamins,Therapeutic 1 tablet PO DAILY 09/27/16 [Multivitamin] [place]-3 Fatty Acids/Fish Oil 1 each PO DAILY 09/27/16 [[place] 3 1,000 mg Softgel] Acetaminophen [Tylenol Tablet] 650 mg PO Q6H PRN PRN tablet 10/02/17 Guaifenesin [Mucinex] 1,200 mg PO BID #20 tablet 10/02/17 Levofloxacin [Levaquin] 750 mg PO DAILY #5 tablet 10/02/17 Potassium Chloride [K-Dur] 20 meq PO BIDCM #60 tablet 10/02/17 Surgical History: - - TAA repair Psychiatric History: No pertinent psych hx Lives: Spouse/ Significant Other Smoking Status: Former smoker Tobacco Use: Non-smoker Alcohol: None Drugs: None - *Family History Maternal History Items: Cancer - colon Paternal History Items: Heart Disease Sibling History Items: Cancer, Heart Disease Review of Systems Constitutional: Reports: Anorexia, Chills, Fever, Weakness, Fatigue. Denies: Night Sweats, Malaise, Weight Change Eyes: Denies: Blurred vision, Pain, Vision Change HEENT: Denies: Difficulty Hearing, Difficulty Swallowing, Head Aches, Nasal Congestion, Post Nasal Drip, Sinus Drainage, Sore Throat Cardiovascular: Denies: Chest Pain, Chest Tightness, Edema, Orthopnea, Palpitations Respiratory: Reports: Cough, Hemoptysis - started out as rust colored, now clear to pale yellow, Shortness of breath upon exertion, Sputum production. Denies: Pleuritic Pain, Wheezing Gastrointestinal: Denies: Abdominal Pain Genitourinary: Denies: Dysuria Skin: Denies: Dryness, Rash, Wounds Neurological: Denies: Difficulty swallowing, Headaches, Numbness, Tingling Psychiatric: Denies: Anxiety, Depression Endocrine: Denies: Change in Body Habitus, Heat/ Cold Intolerance, Polydipsia, Polyuria Hematologic/ Lymphatic: Denies: Adenopathy, Anemia, Easy Bruising, Easy Bleeding Subjective: The patient is restful sitting in the bedside recliner. He is visiting with his . Denies any pain currently. He does report that the shortness of breath has slightly improved since having the thoracentesis completed. Objective: The patient did have a fever of 37.7?C at 2:00 this morning, heart rate and blood pressure have remained stable. He has also not required supplemental oxygen, saturations have been anywhere from 90-95% on room air. WBCs this morning are down to 10.3, H&H down slightly at 12.4/36.8 likely a result of some hemodilution. Fluid from the thoracentesis shows exudative both by LDH criteria alone and by light's criteria. 120 cc of clear yellow fluid was removed. - Physical Exam General: Alert, Oriented x3, Cooperative, No apparent distress, Well developed, Well nourished HEENT: Atraumatic, Normocephalic Oral: Moist Mucosa, No Gingival or Mucosal Lesions/ Ulcerations Neck: Supple, No Nodes, Trachea Midline Lungs: Clear to auscultation, No rhonchi, No wheeze, No rales, Diminished - dullness to percussion in the left base Cardiovascular: Regular rate, Murmur, No rub noted, No Gallop Abdomen: Bowel Sounds Present, Soft, Non Tender, Non-Distended Extremities: No clubbing, No cyanosis, Capillary Refill Less than 3 Seconds, No Calf Tenderness, Diminished Peripheral Pulses, Edema - on pitting to bilateral feet Skin: No rashes, No breakdown Musculoskeletal: No Tenderness to Palpation of Joints or Extremities, No Muscle Wasting Lymphatic: No Cervical, Supraclavicular, or Inguinal Adenopathy Neurological: Cranial nerves II-XII grossly intact, Neuro grossly intact, Motor Exam 5/5 strength throughout Psych/Mental Status: Normal Affect, Appropriate Vital Signs Temp Pulse Resp BP Pulse Ox 36.7 C 91 17 108/85 95 10/07/17 10:54 10/07/17 10:54 10/07/17 10:54 10/07/17 10:54 10/07/17 10:54 Oxygen Flow Rate 2 Oxygen Delivery Method Room Air Weight: 130.6 kg Body Mass Index (BMI) 35.0 Intake and Output for Last 24 Hours 10/05/17 10/06/17 10/07/17 23:59 23:59 23:59 Intake Total 4305 2475 1336 Output Total 1235 1740 545 Balance 3070 735 791 Microbiology Past 72 Hours 10/07/17 10:15 Gram Stain - Final Fluid - Thoracentesis Fluid 10/04/17 23:10 Gram Stain - Final Sputum, Expectorated/Coughed Respiratory Culture - Preliminary 10/04/17 23:56 Respiratory Panel (PCR) - Final Mucosa - Nose 10/05/17 00:40 Streptococcus pneumoniae Antigen (M - Final Urine, Clean Catch 10/05/17 00:40 Legionella Antigen - Final Urine, Clean Catch Laboratory Tests Past 24 Hrs 10/07/17 10/07/17 10/07/17 05:10 05:10 10:15 WBC 10.3 RBC 4.01 L Hgb 12.4 L Hct 36.8 L MCV 91.8 MCH 30.9 MCHC 33.7 RDW 15.5 H RDW Differential 50.6 H Plt Count 352 MPV 9.2 Immature Gran % (Auto) 0.500 Neut % (Auto) 78.8 H Lymph % (Auto) 10.8 L [place] % (Auto) 8.1 Eos % (Auto) 1.5 Baso % (Auto) 0.3 Absolute Neuts (auto) 8.1 H Absolute Lymphs (auto) 1.11 Total Counted Not Reportable Sodium 140 Potassium 4.3 Chloride 106 Carbon Dioxide 25.0 Anion Gap 9 BUN 12 Creatinine 0.91 Estim Creat Clear Calc 87.44 Est GFR (MDRD) Af Amer 104 Est GFR (MDRD) Non-Af 86 BUN/Creatinine Ratio 13.1 Glucose 91 Calcium 8.3 L Phosphorus 2.4 L Magnesium 2.2 Total Bilirubin 1.80 H AST 50 H ALT 50 Alkaline Phosphatase 103 Lactate Dehydrogenase 478 H Total Protein 6.4 Albumin 1.9 L Globulin 4.5 H Albumin/Globulin Ratio 0.4 L Fluid Source Fluid Color Fluid Appearance Fluid pH Fluid WBC Fluid RBC Fluid Tot Cell Count Fld Polynuclear WBCs # Fld Polynuclear WBCs % Fluid Mononuclear WBCs Fld Mononuclear WBCs % Fl Pathologist Comment Fluid Glucose 21 L* Fluid Total Protein 4.3 Fluid LDH 1484 Fluid Comment 2 10/07/17 10/07/17 10:15 10:15 WBC RBC Hgb Hct MCV MCH MCHC RDW RDW Differential Plt Count MPV Immature Gran % (Auto) Neut % (Auto) Lymph % (Auto) [place] % (Auto) Eos % (Auto) Baso % (Auto) Absolute Neuts (auto) Absolute Lymphs (auto) Total Counted Sodium Potassium Chloride Carbon Dioxide Anion Gap BUN Creatinine Estim Creat Clear Calc Est GFR (MDRD) Af Amer Est GFR (MDRD) Non-Af BUN/Creatinine Ratio Glucose Calcium Phosphorus Magnesium Total Bilirubin AST ALT Alkaline Phosphatase Lactate Dehydrogenase Total Protein Albumin Globulin Albumin/Globulin Ratio Fluid Source THORACENTESIS Fluid Color YELLOW Fluid Appearance SL CLDY Fluid pH Pending Fluid WBC 2.315 Fluid RBC 124 Fluid Tot Cell Count 2.315 Fld Polynuclear WBCs # 2.246 Fld Polynuclear WBCs % 97.0 Fluid Mononuclear WBCs 0.069 Fld Mononuclear WBCs % 3.0 Fl Pathologist Comment May follow Fluid Glucose Fluid Total Protein Fluid LDH Fluid Comment 2 SEE COMMENT Assessment/Plan RECOMMENDATIONS: 1. Continue Levaquin, consider transitioning to p.o., discharge to complete a 7 day course 2. Continue bronchodilators as needed 3. Continue supplemental oxygen as needed to keep saturations 89% or higher 4. Walking oximetry prior to discharge 5. Follow-up in the outpatient clinic for PFTs and possibly a formal walking oximetry IMPRESSIONS: 1. Streptococcus pneumonia Continue Levaquin and discharge the patient with enough Levaquin to complete a 7 day course. Continue broncho-dilators as needed. The patient was not previously on inhalers prior to hospitalization. Continue supplemental oxygen as needed to maintain saturations 89% or higher, patient is currently satting adequately on room air. Preform a walking oximetry prior to discharge to evaluate for possible hypoxemia during ambulation. Have the patient follow up in the pulmonary office on an outpatient basis to have a complete pulmonary function test as well as a formal walking oximetry. 2. Pulmonary hypertension The patient does report having shortness of breath. At this point shortness of breath was thought to be related to acute pneumonia. Echocardiogram completed does identify the patient as having mild pulmonary hypertension with a RVSP of 39 mmHg. Would evaluate the patient for exertional hypoxia and provide supplemental oxygen as needed. Would also recommend performing a complete pulmonary function test with interest of diffusing lung capacity. Would consider evaluating the patient for other conditions that may have caused the pulmonary hypertension such as sleep disordered breathing, this can be evaluated on outpatient basis. 3. History of thoracic aortic aneurysm repair/essential hypertension/ dyslipidemia/obesity/advanced age Comorbid illness complicates exam, plan, care and prognosis. Resume all home medications as tolerates, defer to hospitalist.
[2017-10-07] MEDS: Atorvastatin Calcium 20 MG Tablet PO (21:23)
[2017-10-07 22:35] LABS: Cytology, Body Fluid / CSF SEE PATHOLOGY REPORT
[2017-10-08] VITALS (10 sets, daily range): BP systolic 122–134; BP diastolic 68–76; PULSE 78–94; RESP 16–18; TEMP 36.6–37.1; O2SAT 94–97
[2017-10-08] MEDS: Acyclovir 5% Tube 1 APPLIC TOPICAL ×4 (05:25→21:23)
[2017-10-08] MEDS: 0.9% Normal Saline 1,000 ML 60 ML IV (05:25)
[2017-10-08 07:04] LABS: Absolute Lymphocyte Count 1.32 X10^3/ul (0.83-4.51); Absolute Neutrophil Count 6.2 X10^3/uL (2.0-7.7); Basophil# 0.03 X10^3/uL; Basophil% 0.4 % (0-1); Eosinophil# 0.19 X10^3/uL; Eosinophils% 2.3 % (0-5); Hematocrit 39.1 % (40-54); Hemoglobin 12.7 g/dl (13.0-16.5); Lymphocyte # 1.32 X10^3/ul (4.0); Lymphocyte % 15.9 % (19-41); Mean Corp Hgb Conc 32.5 g/gl (32-36); Mean Corpuscular Volume 92.4 fL (80-94); Mean Platelet Vol. 8.7 fl (6.2-12.0); Monocyte# 0.57 X10^3/uL; Monocyte% 6.9 % (0-10); Neutrophil # 6.18 X10^3/uL (2.7-7.7); Neutrophil % 74.3 % (47-70); Platelet Count 328 K/mm3 (150-450); RBC Distribution Width CV 15.3 % (11.6-14.6); RBC Distribution Width SD 51.8 fl (35.1-43.9); Red Blood Count 4.23 M/mm3 (4.6-6.2); White Blood Count 8.3 K/mm3 (4.4-11.0)
[2017-10-08 07:06] LABS: POSITIVE COUNT NO; POSITIVE DIFFERENTIAL NO; POSITIVE MORPHOLOGY NO
[2017-10-08 07:14] LABS: Anion Gap 6 (5-15); BUN 12 mg/dL (7-18); BUN/Creat Ratio 13.8 RATIO (10-20); Calcium,Total 8.3 mg/dL (8.5-10.1); Chloride 108 mmol/L (98-107); Creatinine, Serum 0.87 mg/dL (0.70-1.30); EST Glomerular Filtration Rate 91 mL/min (>60); Est Glom Filt Rate - Afr Amer 111 mL/min (>60); Estimated Creatinine Clearance 91.46 ml/min; Glucose 98 mg/dL (70-110); Sodium Level 141 mmol/L (136-145)
--- NOTE | 2017-10-08 07:32 | PCA ---
pt off floor
[2017-10-08] MEDS: Multivitamins,Therapeutic Tablet 1 TABLET PO (08:03)
[2017-10-08] MEDS: Aspirin 81 MG TAB.CHEW PO (08:03)
[2017-10-08] MEDS: CABERGOLINE 0.5 MG TABLET 1 MG PO (08:03)
[2017-10-08] MEDS: Enoxaparin 40 MG/0.4 ML Syringe SC (08:04)
[2017-10-08] MEDS: guaiFENesin 1,200 MG Tablet 1200 MG PO ×2 (08:04→21:33)
[2017-10-08] MEDS: Famotidine 20 MG Tablet PO ×2 (08:05→21:25)
[2017-10-08] MEDS: Ascorbic Acid 500 MG Tablet 1000 MG PO (08:05)
--- NOTE | 2017-10-08 08:26 | PN_ITS ---
Subjective: The patient was seen and examined. He is resting comfortably in the chair visiting with family. Denies any current shortness of breath or chest pain. Has ambulated to the bathroom and reports moderate shortness of breath with activity. His cough remains about the same, has some clear to yellow sputum production that mainly occurs with exertion or with using his incentive spirometer/Acapella. Vital signs remained stable, he is afebrile and 97% on room air. Has not required any as needed albuterol. - Physical Exam General: Alert, Oriented x3, Cooperative, No apparent distress, Well developed, Well nourished HEENT: Atraumatic, Normocephalic Oral: Moist Mucosa, Ulcerations Present - right upper lip cold sore, appears to be healing Neck: Supple, No Nodes, Trachea Midline Lungs: - - Severely diminished in most of left lung, dull to percussion. Right lobe mildly diminished. No wheezes, rhonchi, or rales. Cardiovascular: Regular rate, Regular Rhythm, Normal S1, Normal S2, Murmur, No rub noted, No Gallop Extremities: No clubbing, No cyanosis, Capillary Refill Less than 3 Seconds, No Calf Tenderness, Diminished Peripheral Pulses, Edema - Bilateral UEs and LEs, pitting Skin: No rashes, - - thoracentesis site d/i, no ecchymosis or erythema Musculoskeletal: No Tenderness to Palpation of Joints or Extremities Neurological: Neuro grossly intact Psych/Mental Status: Alert and oriented to time, place, person, mood and affect Vital Signs Temp Pulse Resp BP Pulse Ox 97.9 F 81 16 122/68 96 10/08/17 01:52 10/08/17 04:02 10/08/17 01:52 10/08/17 01:52 10/08/17 01:52 Oxygen Flow Rate 2 Oxygen Delivery Method Room Air Weight: 130.6 kg Body Mass Index (BMI) 35.0 Intake and Output for Last 24 Hours 10/06/17 10/07/17 10/08/17 23:59 23:59 23:59 Intake Total 3405 1736 1393 Output Total 1740 945 750 Balance 735 791 643 Microbiology Past 72 Hours 10/04/17 23:10 Gram Stain - Final Sputum, Expectorated/Coughed Respiratory Culture - Final 10/07/17 10:15 Gram Stain - Final Fluid - Thoracentesis Fluid 10/04/17 23:56 Respiratory Panel (PCR) - Final Mucosa - Nose Laboratory Tests Past 24 Hrs 10/07/17 10/07/17 10/07/17 10:15 10:15 10:15 WBC RBC Hgb Hct MCV MCH MCHC RDW RDW Differential Plt Count MPV Immature Gran % (Auto) Neut % (Auto) Lymph % (Auto) [place] % (Auto) Eos % (Auto) Baso % (Auto) Absolute Neuts (auto) Absolute Lymphs (auto) Total Counted Sodium Potassium Chloride Carbon Dioxide Anion Gap BUN Creatinine Estim Creat Clear Calc Est GFR (MDRD) Af Amer Est GFR (MDRD) Non-Af BUN/Creatinine Ratio Glucose Calcium Fluid Source THORACENTESIS Fluid Color YELLOW Fluid Appearance SL CLDY Fluid pH Fluid WBC 2.315 Fluid RBC 124 Fluid Tot Cell Count 2.315 Fld Polynuclear WBCs # 2.246 Fld Polynuclear WBCs % 97.0 Fluid Mononuclear WBCs 0.069 Fld Mononuclear WBCs % 3.0 Fl Pathologist Comment May follow Fluid Glucose 21 L* Fluid Total Protein 4.3 Fluid LDH 1484 Fluid Comment 2 SEE COMMENT Miscellaneous Cytology Pending 10/07/17 10/08/17 10/08/17 10:15 06:45 06:45 WBC 8.3 RBC 4.23 L Hgb 12.7 L Hct 39.1 L MCV 92.4 MCH 30.0 MCHC 32.5 RDW 15.3 H RDW Differential 51.8 H Plt Count 328 MPV 8.7 Immature Gran % (Auto) 0.200 Neut % (Auto) 74.3 H Lymph % (Auto) 15.9 L Early % (Auto) 6.9 Eos % (Auto) 2.3 Baso % (Auto) 0.4 Absolute Neuts (auto) 6.2 Absolute Lymphs (auto) 1.32 Total Counted Not Reportable Sodium 141 Potassium 4.0 Chloride 108 H Carbon Dioxide 27.0 Anion Gap 6 BUN 12 Creatinine 0.87 Estim Creat Clear Calc 91.46 Est GFR (MDRD) Af Amer 111 Est GFR (MDRD) Non-Af 91 BUN/Creatinine Ratio 13.8 Glucose 98 Calcium 8.3 L Fluid Source Fluid Color Fluid Appearance Fluid pH Pending Fluid WBC Fluid RBC Fluid Tot Cell Count Fld Polynuclear WBCs # Fld Polynuclear WBCs % Fluid Mononuclear WBCs Fld Mononuclear WBCs % Fl Pathologist Comment Fluid Glucose Fluid Total Protein Fluid LDH Fluid Comment 2 Miscellaneous Cytology Assessment/Plan RECOMMENDATIONS: 1. Continue Levaquin, continue on discharge to complete a 7 day course 2. Continue bronchodilators as needed 3. Continue supplemental oxygen as needed to keep saturations 88% or higher 4. Walking oximetry prior to discharge 5. Follow-up in the outpatient clinic in 2 weeks for PFTs and possibly a formal walking oximetry IMPRESSIONS: 1. Streptococcal pneumonia Recent hospitalization for streptococcal septicemia. Thoracentesis on 10/07 with 120 mL of fluid removed, was exudative and suggestive of empyema with glucose 21, pH is pending. Continue Levaquin and discharge on 7 day course. May need referral to tertiary care center for CT evaluation. Continue broncho- dilators as needed, has not required as of now. Continue supplemental oxygen as needed to maintain saturations 88% or higher, patient currently not requiring any oxygen and is 97% on room air. Please perform a walking oximetry prior to discharge to evaluate for possible hypoxemia during ambulation. Have the patient follow up in the pulmonary office on an outpatient basis in 2 weeks , will have complete pulmonary function test as well as a formal walking oximetry if loculation has resolved. 2. Pulmonary hypertension Echocardiogram indicates mild pulmonary hypertension with an RVSP of 39 mmHg. Would evaluate the patient for exertional hypoxia and provide supplemental oxygen as needed. Would also recommend outpatient pulmonary function tests with interest of diffusing lung capacity. Also would consider outpatient evaluation for other conditions that may have contributed to pulmonary hypertension such as sleep disordered breathing. 3. History of thoracic aortic aneurysm repair/essential hypertension/ dyslipidemia/obesity/advanced age Complicates care, management, recovery, and prognosis. Resume all home medications as tolerated, defer to hospitalist. This note was generated with [employer] dictation software. It may contain incorrect words, spelling, and punctuation that were not noted in checking the note before signing.
--- NOTE | 2017-10-08 09:44 | PCA ---
pt stated he got cleaned up at 5:30 this morning
[2017-10-08 10:29] LABS: Pathologist Comment/Body Fluid Reviewed
--- NOTE | 2017-10-08 11:57 | PCM.PROGNOTE ---
Subjective: Chief complaint: Follow-up after admission for fever and hypotension with recent history of streptococcal pneumonia, found to have left-sided pleural effusion status post thoracentesis. Patient seen and examined. No acute events overnight. He still complaining of productive cough, denies fever chills. Denied shortness of breath, chest pain, dizziness or lightheadedness. His vital signs are stable. - Physical Exam General: Alert, Oriented x3, Cooperative, No apparent distress HEENT: Atraumatic, PERRLA, EOMI Oral: Moist Mucosa, No Gingival or Mucosal Lesions/ Ulcerations Neck: Supple, No JVD, Negative Carotid Bruits, Trachea Midline, Thyroid Normal Size and Texture Lungs: Clear to auscultation, No rhonchi, No wheeze, No rales, Diminished, - - Decreased breath sounds at the left base, otherwise clear. Cardiovascular: Regular rate, Regular Rhythm, Normal S1, Normal S2, No murmurs Abdomen: Bowel Sounds Present, Soft, Non Tender, Non-Distended, No Hepato-splenomegaly, Obese Extremities: No clubbing, No cyanosis, No edema Skin: No rashes, No breakdown Lymphatic: No Cervical, Supraclavicular, or Inguinal Adenopathy Neurological: Neuro grossly intact Psych/Mental Status: Normal Affect, Appropriate, Alert and oriented to time, place, person, mood and affect Vital Signs Temp Pulse Resp BP Pulse Ox 98.0 F 84 18 124/68 97 10/08/17 08:00 10/08/17 11:35 10/08/17 08:00 10/08/17 08:00 10/08/17 08:00 Oxygen Flow Rate 2 Oxygen Delivery Method Room Air Weight: 287 lb 14.779 oz Body Mass Index (BMI) 35.0 Intake and Output for Last 24 Hours 10/06/17 10/07/17 10/08/17 23:59 23:59 23:59 Intake Total 2475 1736 1393 Output Total 1740 945 750 Balance 735 791 643 Microbiology Past 72 Hours 10/04/17 23:10 Gram Stain - Final Sputum, Expectorated/Coughed Respiratory Culture - Final 10/07/17 10:15 Gram Stain - Final Fluid - Thoracentesis Fluid 10/04/17 23:56 Respiratory Panel (PCR) - Final Mucosa - Nose Laboratory Tests Past 24 Hrs 10/07/17 10/07/1710/07/17 10:15 10:15 10:15 WBC RBC Hgb Hct MCV MCH MCHC RDW RDW Differential Plt Count MPV Immature Gran % (Auto) Neut % (Auto) Lymph % (Auto) [place] % (Auto) Eos % (Auto) Baso % (Auto) Absolute Neuts (auto) Absolute Lymphs (auto) Total Counted Sodium Potassium Chloride Carbon Dioxide Anion Gap BUN Creatinine Estim Creat Clear Calc Est GFR (MDRD) Af Amer Est GFR (MDRD) Non-Af BUN/Creatinine Ratio Glucose Calcium Fluid Source THORACENTESIS Fluid Color YELLOW Fluid Appearance SL CLDY Fluid pH Pending Fluid RBC 124 Fl Pathologist Comment Reviewed Fluid Comment 2 SEE COMMENT Miscellaneous Cytology Pending 10/08/17 10/08/17 06:45 06:45 WBC 8.3 RBC 4.23 L Hgb 12.7 L Hct 39.1 L MCV 92.4 MCH 30.0 MCHC 32.5 RDW 15.3 H RDW Differential 51.8 H Plt Count 328 MPV 8.7 Immature Gran % (Auto) 0.200 Neut % (Auto) 74.3 H Lymph % (Auto) 15.9 L [place] % (Auto) 6.9 Eos % (Auto) 2.3 Baso % (Auto) 0.4 Absolute Neuts (auto) 6.2 Absolute Lymphs (auto) 1.32 Total Counted Not Reportable Sodium 141 Potassium 4.0 Chloride 108 H Carbon Dioxide 27.0 Anion Gap 6 BUN 12 Creatinine 0.87 Estim Creat Clear Calc 91.46 Est GFR (MDRD) Af Amer 111 Est GFR (MDRD) Non-Af 91 BUN/Creatinine Ratio 13.8 Glucose 98 Calcium 8.3 L Fluid Source Fluid Color Fluid Appearance Fluid pH Fluid RBC Fl Pathologist Comment Fluid Comment 2 Miscellaneous Cytology Assessment/Plan This is a 72 years old male patient admitted because of fever and low blood pressure with recent history of community-acquired pneumonia, discharged from the hospital 1 week ago and he was found to have loculated left-sided pleural effusion. #1 left pleural effusion: Pleural fluid analysis reviewed, it is exudative effusion likely parapneumonic effusion. Pleural fluid is very low which may indicate empyema. Pleural fluid pH is pending. Clinically, I doubt empyema at this time, patient is stable, afebrile, no leukocytosis and his oxygen is normal. He had a recent history of pneumococcal community acquired pneumonia 1 week ago, was sent home on Levaquin. Pulmonology on the case. Infectious disease consulted. Plan to continue same treatment. #2 recent history of pneumococcal community acquired pneumonia: he is on IV Levaquin as above, vital signs are stable, afebrile, white blood cell count is normal. Pulse ox is normal on room air. blood culture showed no growth in 48 hours. Pneumococcal and Legionella antigen were negative this admission, pneumococcal antigen was positive during last admission. Sputum cultures pending. Respiratory panel for viruses were negative. Plan to continue same treatment. #3 hypokalemia: Replaced and corrected, today's potassium is 4.0. #4 hypertension: Blood pressure stabilized, reportedly it was low at home. Norvasc, HCTZ and losartan held. #5 history of thoracic aortic aneurysm: Status post repair, stable, no acute issues. #6 hyperlipidemia: Continue statins. #7 DVT prophylaxis: Subcu Lovenox, SCDs. This note was generated with [employer] dictation software. It may contain incorrect words, spelling, and punctuation that were not noted in checking the note before signing.
[2017-10-08] MEDS: Atorvastatin Calcium 20 MG Tablet PO (21:26)
[2017-10-09] VITALS (13 sets, daily range): BP systolic 118–142; BP diastolic 68–86; PULSE 81–96; RESP 16–20; TEMP 36.6–36.9; O2SAT 92–96
[2017-10-09] MEDS: Acyclovir 5% Tube 1 APPLIC TOPICAL ×5 (07:01→23:35)
[2017-10-09] MEDS: guaiFENesin 1,200 MG Tablet 1200 MG PO ×2 (07:56→23:35)
[2017-10-09] MEDS: Aspirin 81 MG TAB.CHEW PO (07:56)
[2017-10-09] MEDS: Multivitamins,Therapeutic Tablet 1 TABLET PO (07:56)
[2017-10-09] MEDS: Famotidine 20 MG Tablet PO ×2 (07:56→23:35)
[2017-10-09] MEDS: Ascorbic Acid 500 MG Tablet 1000 MG PO (07:56)
--- NOTE | 2017-10-09 08:27 | PCM.PROGNOTE ---
Subjective: Patient seen and examined, sitting up in chair with no complaints. No acute events overnight. Denies any chest pain or significant shortness of breath. He has been up ambulating in the halls with no desaturations while on room air, lowest pulse ox was 93%. Denies any worsening of cough, some sputum production but improved. Denies any fever or chills. He remains on Levaquin IV, awaiting ID consultation. States if he has to be transferred for cardiothoracic evaluation, he would like to go to the [facility]. Objective: Vital signs remained stable, patient is hemodynamically stable. No supplemental oxygen requirements. Blood cultures, respiratory culture and viral panel, and strep/Legionella all negative. Fluid culture from thoracentesis is pending. - Physical Exam General: Alert, Oriented x3, Cooperative, No apparent distress, Well developed, Well nourished, - - No conversational dyspnea HEENT: Atraumatic, Normocephalic Oral: Moist Mucosa, - - Lips peeling/crack with scabs Neck: Supple, No Nodes Lungs: - - Diminished, left mid to base greater than right. No wheezing or rhonchi or rales Cardiovascular: Regular rate, Regular Rhythm, Normal S1, Normal S2, No murmurs Abdomen: Bowel Sounds Present, Soft, Non Tender, Non-Distended, Obese Extremities: No clubbing, No cyanosis, No Calf Tenderness, Edema - unchanged from previous Skin: No rashes Neurological: Cranial nerves II-XII grossly intact, Neuro grossly intact Psych/Mental Status: Alert and oriented to time, place, person, mood and affect Vital Signs Temp Pulse Resp BP Pulse Ox 98.4 F 81 16 142/86 94 10/09/17 02:00 10/09/17 04:00 10/09/17 03:00 10/09/17 02:00 10/09/17 02:00 Oxygen Flow Rate 2 Oxygen Delivery Method Room Air Weight: 130.6 kg Body Mass Index (BMI) 35.0 Intake and Output for Last 24 Hours 10/07/17 10/08/17 10/09/17 23:59 23:59 23:59 Intake Total 1736 1393 1375 Output Total 110 348 8017 Balance 791 643 125 Microbiology Past 72 Hours 10/07/17 10:15 Gram Stain - Final Fluid - Thoracentesis Fluid Anaerobic Culture - Preliminary No growth in 48 hours. 10/04/17 23:10 Gram Stain - Final Sputum, Expectorated/Coughed Respiratory Culture - Final Laboratory Tests Past 24 Hrs 10/07/17 10/07/17 10:15 10:15 Fl Pathologist Comment Reviewed Miscellaneous Cytology SEE PATHOLOGY REPORT Assessment/Plan RECOMMENDATIONS: 1. Continue antibiotics, pending ID consultation 2. Continue bronchodilators on as needed basis 3. Supplemental oxygen as needed to keep saturations 88% or higher 4. Encourage I.S. and increase activity as tolerated 5. Consider transfer to tertiary care center for cardiothoracic evaluation` 6. Follow-up in the outpatient pulmonary clinic in 2 weeks for PFTs and possibly a formal walking oximetry IMPRESSIONS: 1. Streptococcal pneumonia Recent hospitalization for streptococcal septicemia. Thoracentesis on 10/07 with 120 mL of fluid removed, was exudative and suggestive of empyema. Continue Levaquin for now, pending infectious disease consult. Patient does appear clinically well, no leukocytosis, fevers. Still has mildly productive cough. May need referral to tertiary care center for CT evaluation if ID does not think can be treated with long-term IV antibiotics. Would hold off for now on repeat CT chest. Continue broncho-dilators as needed, has not required as of now. Encourage I.S. and increase activity as tolerated. Continue supplemental oxygen as needed to maintain saturations 88% or higher, patient currently not requiring any oxygen and is 97% on room air. Walking oximetry completed, no need for supplemental oxygen at d/c. Have the patient follow up in the pulmonary office on an outpatient basis in 2 weeks, will schedule further pulmonary testing at that time as indicated. 2. Pulmonary hypertension Echocardiogram indicates mild pulmonary hypertension with an RVSP of 39 mmHg. Would evaluate the patient for exertional hypoxia and provide supplemental oxygen as needed. Would also recommend outpatient pulmonary function tests with interest of diffusing lung capacity. Also would consider outpatient evaluation for other conditions that may have contributed to pulmonary hypertension such as sleep disordered breathing. 3. History of thoracic aortic aneurysm repair/essential hypertension/dyslipidemia/obesity/advanced age Complicates care, management, recovery, and prognosis. Resume all home medications as tolerated, defer to hospitalist. This note was generated with [employer] software. It may contain incorrect words, spelling, and punctuation that were not noted in checking the note before signing.
[2017-10-09] MEDS: Enoxaparin 40 MG/0.4 ML Syringe SC (09:29)
--- NOTE | 2017-10-09 10:55 | PCM.PROGNOTE ---
Subjective: Chief complaint: Follow-up after admission for fever and hypotension with recent history of streptococcal pneumonia, found to have exudative left-sided pleural effusion probably due to parapneumonic effusion, empyema is less likely. Patient seen and examined. No acute events overnight. Denied chest pain or shortness of breath, still complaining of mild cough with minimal sputum. Vital signs are stable, afebrile. - Physical Exam General: Alert, Oriented x3, Cooperative, No apparent distress HEENT: Atraumatic, PERRLA, EOMI Oral: Moist Mucosa, No Gingival or Mucosal Lesions/ Ulcerations Neck: Supple, No JVD, Negative Carotid Bruits, Trachea Midline, Thyroid Normal Size and Texture Lungs: Clear to auscultation, No rhonchi, No wheeze, No rales, Diminished, - - Decreased breath sounds on the left base, otherwise clear. Cardiovascular: Regular rate, Regular Rhythm, Normal S1, Normal S2, No murmurs Abdomen: Bowel Sounds Present, Soft, Non Tender, Non-Distended, No Hepato-splenomegaly Extremities: No clubbing, No cyanosis, No edema Skin: No rashes, No breakdown Lymphatic: No Cervical, Supraclavicular, or Inguinal Adenopathy Neurological: Neuro grossly intact Psych/Mental Status: Normal Affect, Appropriate Vital Signs Temp Pulse Resp BP Pulse Ox 97.8 F 94 20 128/71 93 10/09/17 07:50 10/09/17 08:02 10/09/17 07:50 10/09/17 07:50 10/09/17 10:16 Oxygen Flow Rate 2 Oxygen Delivery Method Room Air Weight: 287 lb 14.779 oz Body Mass Index (BMI) 35.0 Intake and Output for Last 24 Hours 10/07/17 10/08/17 10/09/17 23:59 23:59 23:59 Intake Total 1736 1393 1375 Output Total 209 834 4665 Balance 791 643 125 Microbiology Past 72 Hours 10/07/17 10:15 Gram Stain - Final Fluid - Thoracentesis Fluid Anaerobic Culture - Preliminary No growth in 48 hours. 10/04/17 23:10 Gram Stain - Final Sputum, Expectorated/Coughed Respiratory Culture - Final Laboratory Tests Past 24 Hrs 10/07/17 10:15 Miscellaneous Cytology SEE PATHOLOGY REPORT Assessment/Plan This is a 72 years old male patient admitted because of fever and low blood pressure with recent history of community-acquired pneumonia, discharged from the hospital 1 week ago and he was found to have exudative left-sided pleural effusion. #1 Exudative left pleural effusion: Likely due to pulmonary effusion, empyema is less likely. Pleural fluid pH is pending. He is on oral Levaquin. Vital signs remained stable, remained afebrile, pulse ox is normal on room air. Clinically, I doubt empyema at this time, patient is stable, afebrile, no leukocytosis and his oxygen is normal. He had a recent history of pneumococcal community acquired pneumonia 1 week ago, was sent home on Levaquin. Pulmonology on the case. Infectious disease consulted awaiting recommendations. Plan to continue same treatment. #2 recent history of pneumococcal community acquired pneumonia: he is on IV Levaquin as above, vital signs are stable, afebrile, white blood cell count is normal. Pulse ox is normal on room air. blood culture showed no growth in 48 hours. Pneumococcal and Legionella antigen were negative this admission, pneumococcal antigen was positive during last admission. Sputum cultures pending. Respiratory panel for viruses were negative. Plan to continue same treatment. #3 hypokalemia: Replaced and corrected, most recent potassium is 4.0. #4 hypertension: Blood pressure stabilized, reportedly it was low at home. Plan to resume Norvasc and metoprolol. #5 history of thoracic aortic aneurysm: Status post repair, stable, no acute issues. #6 hyperlipidemia: Continue statins. #7 DVT prophylaxis: Subcu Lovenox, SCDs. This note was generated with [employer] software. It may contain incorrect words, spelling, and punctuation that were not noted in checking the note before signing.
--- NOTE | 2017-10-09 10:59 | PN_ITS ---
Subjective: Chief complaint: Follow-up after admission for fever and hypotension with recent history of streptococcal pneumonia, found to have exudative left-sided pleural effusion probably due to parapneumonic effusion, empyema is less likely. Patient seen and examined. No acute events overnight. Denied chest pain or shortness of breath, still complaining of mild cough with minimal sputum. Vital signs are stable, afebrile. - Physical Exam General: Alert, Oriented x3, Cooperative, No apparent distress HEENT: Atraumatic, PERRLA, EOMI Oral: Moist Mucosa, No Gingival or Mucosal Lesions/ Ulcerations Neck: Supple, No JVD, Negative Carotid Bruits, Trachea Midline, Thyroid Normal Size and Texture Lungs: Clear to auscultation, No rhonchi, No wheeze, No rales, Diminished, - - Decreased breath sounds on the left base, otherwise clear. Cardiovascular: Regular rate, Regular Rhythm, Normal S1, Normal S2, No murmurs Abdomen: Bowel Sounds Present, Soft, Non Tender, Non-Distended, No Hepato- splenomegaly Extremities: No clubbing, No cyanosis, No edema Skin: No rashes, No breakdown Lymphatic: No Cervical, Supraclavicular, or Inguinal Adenopathy Neurological: Neuro grossly intact Psych/Mental Status: Normal Affect, Appropriate Vital Signs Temp Pulse Resp BP Pulse Ox 97.8 F 94 20 128/71 93 10/09/17 07:50 10/09/17 08:02 10/09/17 07:50 10/09/17 07:50 10/09/17 10:16 Oxygen Flow Rate 2 Oxygen Delivery Method Room Air Weight: 287 lb 14.779 oz Body Mass Index (BMI) 35.0 Intake and Output for Last 24 Hours 10/07/17 10/08/17 10/09/17 23:59 23:59 23:59 Intake Total 1736 1393 1375 Output Total 430 571 0927 Balance 791 643 125 Microbiology Past 72 Hours 10/07/17 10:15 Gram Stain - Final Fluid - Thoracentesis Fluid Anaerobic Culture - Preliminary No growth in 48 hours. 10/04/17 23:10 Gram Stain - Final Sputum, Expectorated/Coughed Respiratory Culture - Final Laboratory Tests Past 24 Hrs 10/07/17 10:15 Miscellaneous Cytology SEE PATHOLOGY REPORT Assessment/Plan This is a 72 years old male patient admitted because of fever and low blood pressure with recent history of community-acquired pneumonia, discharged from the hospital 1 week ago and he was found to have exudative left-sided pleural effusion. #1 Exudative left pleural effusion: Likely due to pulmonary effusion, empyema is less likely. Pleural fluid pH is pending. He is on oral Levaquin. Vital signs remained stable, remained afebrile, pulse ox is normal on room air. Clinically, I doubt empyema at this time, patient is stable, afebrile, no leukocytosis and his oxygen is normal. He had a recent history of pneumococcal community acquired pneumonia 1 week ago, was sent home on Levaquin. Pulmonology on the case. Infectious disease consulted awaiting recommendations. Plan to continue same treatment. #2 recent history of pneumococcal community acquired pneumonia: he is on IV Levaquin as above, vital signs are stable, afebrile, white blood cell count is normal. Pulse ox is normal on room air. blood culture showed no growth in 48 hours. Pneumococcal and Legionella antigen were negative this admission, pneumococcal antigen was positive during last admission. Sputum cultures pending. Respiratory panel for viruses were negative. Plan to continue same treatment. #3 hypokalemia: Replaced and corrected, most recent potassium is 4.0. #4 hypertension: Blood pressure stabilized, reportedly it was low at home. Plan to resume Norvasc and metoprolol. #5 history of thoracic aortic aneurysm: Status post repair, stable, no acute issues. #6 hyperlipidemia: Continue statins. #7 DVT prophylaxis: Subcu Lovenox, SCDs. This note was generated with [employer] software. It may contain incorrect words, spelling, and punctuation that were not noted in checking the note before signing.
[2017-10-09 14:28] LABS: pH, Body Fluid 11254 6.9 (Not Estab.)
--- NOTE | 2017-10-09 14:43 | CT_ITS ---
STUDY: CT CHEST WITHOUT CONTRAST REASON FOR EXAM: Male, 72 years old. Pneumonia and pleural effusion RADIATION DOSAGE (If Supplied By Facility): CTDIvol = ( 19.83 ) mGy, DLP = ( 727.64 ) mGycm TECHNIQUE: Transaxial imaging was performed without the administration of intravenous contrast material. Multiplanar coronal and sagittal images were reformatted. Individualized dose optimization techniques were used for this CT. COMPARISON: Prior chest radiograph of October 07, 2017. Prior chest CT exam of October 05, 2017. FINDINGS: Small dependent right pleural effusion and mild basilar atelectatic changes of the right lung similar to the preceding exam. Consolidation and marked volume loss in the basilar segments of the left lower lobe with some sparing of the superior segment. Volume loss and consolidation in the dependent portion of the lingula. Large left pleural effusion which may be in part loculated secondary to its shape and distribution. Endovascular stents of the aorta and aortic diameters are unchanged. Coronary calcifications are present. Shotty mediastinal lymph nodes are unchanged. Negative for right hilar mass. Indeterminate for left hilar mass or adenopathy since the opacified lung parenchyma obscures hilar margins. Normal unenhanced pulmonary arteries. There are multi-level degenerative changes of the thoracic spine. 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 Calcified granulomata of the spleen. Multiple large cysts of the right kidney. Only the upper pole of the right kidney is included in the [id number] but there is good evidence of hydronephrosis. Contracted or retracted gallbladder with calcifications. CT/Chest without Contrast IMPRESSION: No substantial changes from the prior exam. Small dependent right pleural effusion and mild basilar atelectatic changes. Consolidation and marked volume loss and basilar segments of the left lower lobe, some sparing of the superior segment. Volume loss and consolidation in the dependent portion of the lingula. Large and probably at least partly loculated left pleural effusion in the lateral, anterior, posterior and subpulmonic space. Stable shotty mediastinal lymph nodes. Indeterminate for exclusion of left hilar mass or adenopathy. Stable endovascular stents of the aneurysmal thoracic aorta. Right hydronephrosis with multiple renal cysts. Calcified granulomata of the spleen. Contracted or retracted gallbladder calcifications. Electronically Signed: Cha Madrid MD at 16:25 EST , Service support ,
--- NOTE | 2017-10-09 14:56 | CON.PCM_ITS ---
Problem List (1) CAP (community acquired pneumonia) Status: Acute Qualifiers: Laterality: left Lung location: lower lobe of lung Qualified Code(s): J18.1 - Lobar pneumonia, unspecified organism Reason for Consult: empyema Consulted by: Dr. Avila History of Present Illness: The patient is a 72 year old M with h/o thoracic aortic aneurysm repair who presented 10/04 with fever, chills, worsening SOB and cough. Had been admitted 09/30, found to have s.pneumo pneumonia and bacteremia. Sent out on levaquin, felt better, but then sx worsened while on abx. Came back to hospital, found to have loculated pleural effusion. Thoracentesis 10/07 showed gluc 21, wbc 2, 289. Cxs neg so far. Pt on levaquin still, feeling fine currently. Full ROS performed and neg except as noted above. - Medical History Past Medical History (Chronic Problems): Chronic Problems Dyslipidemia (Chronic) Essential (primary) hypertension (Chronic) Obesity (BMI 30.0-34.9) (Chronic) H/O thoracic aortic aneurysm repair (Chronic) Allergies/Adverse Reactions: Allergies No Known Allergies Allergy (Verified 10/04/17 18:18) Home Medications: Ambulatory Orders Medication Instructions Recorded Amlodipine [Norvasc] 10 mg PO DAILY 09/27/16 Ascorbic Acid [Vitamin C] 1,000 mg PO DAILY 09/27/16 Aspirin [Aspirin, Baby] 81 mg PO DAILY@0800 09/27/16 Atorvastatin Calcium [Lipitor] 20 mg PO QHS 09/27/16 Cabergoline 2 tab PO TUFR 09/27/16 Losartan/Hydrochlorothiazide 1 each PO BREAKFAST 09/27/16 [Losartan-Hctz 100-25 mg Tab] Metoprolol Tartrate [Lopressor 50 mg PO BID 09/27/16 (beta ashutosh)] Multivitamins,Therapeutic 1 tablet PO DAILY 09/27/16 [Multivitamin] [place]-3 Fatty Acids/Fish Oil 1 each PO DAILY 09/27/16 [[place] 3 1,000 mg Softgel] Acetaminophen [Tylenol Tablet] 650 mg PO Q6H PRN PRN tablet 10/02/17 Guaifenesin [Mucinex] 1,200 mg PO BID #20 tablet 10/02/17 Levofloxacin [Levaquin] 750 mg PO DAILY #5 tablet 10/02/17 Potassium Chloride [K-Dur] 20 meq PO BIDCM #60 tablet 10/02/17 - Social History SMOKING STATUS:: Former smoker Vital Signs Temp Pulse Resp BP Pulse Ox 97.8 F 89 20 128/71 93 10/09/17 07:50 10/09/17 12:00 10/09/17 07:50 10/09/17 07:50 10/09/17 10:16 Oxygen Flow Rate 2 Oxygen Delivery Method Room Air Weight: 130.6 kg Body Mass Index (BMI) 35.0 Microbiology Past 72 Hours 10/07/17 10:15 Gram Stain - Final Fluid - Thoracentesis Fluid Anaerobic Culture - Preliminary No growth in 48 hours. 10/04/17 23:10 Gram Stain - Final Sputum, Expectorated/Coughed Respiratory Culture - Final Laboratory Tests Past 24 Hrs 10/07/17 10/07/17 10:15 10:15 Fluid pH 6.9 Miscellaneous Cytology SEE PATHOLOGY REPORT - Other Studies Radiology: reviewed Other Studies: [] Route of nutrition/ use of supplements: [] Nutritional Intake: [] IV Site: [] Barnett Catheter: [] - Physical Exam General: Alert, Oriented x3, Cooperative, No apparent distress HEENT: Atraumatic, PERRLA, EOMI Neck: Supple, No Nodes Lungs: Clear to auscultation, Diminished - L base Cardiovascular: Regular rate, Regular Rhythm, No murmurs Abdomen: Bowel Sounds Present, Soft, Non Tender, Non-Distended Extremities: No edema Skin: No rashes IV Site: Peripheral, without redness Musculoskeletal: No Tenderness to Palpation of Joints or Extremities Neurological: Cranial nerves II-XII grossly intact - Assessment/Plan Antibiotics: [] Assessment/Plan: [] L chest parapneumonic loculated effusion with s.pneumo in blood - now s.p thoracentesis 10/07. Difficult to definitively say if this is empyema or if he will need surgical eval. I think it is concerning that he worsened at home while on levaquin which should have been effective therapy. Discussed options with him. Will go ahead with repeat ct chest to see if there is significant residual loculated fluid. If not, plan on d/c home on po levaquin with repeat imaging to document complete resolution. If good source control has not be obtained, will need surgical eval and likely transfer to tertiary care center. Pt is in agreement with this plan Thank you, will follow, d/w Dr. Avila and Dr. Quinones.
[2017-10-09] MEDS: 0.9% NaCl Peripheral Flush Adult/Peds IV (15:27)
[2017-10-09] MEDS: Metoprolol Tartrate 50 MG Tablet PO (23:34)
[2017-10-09] MEDS: Atorvastatin Calcium 20 MG Tablet PO (23:35)
[2017-10-10] VITALS (11 sets, daily range): BP systolic 126–136; BP diastolic 58–82; PULSE 68–102; RESP 16–18; TEMP 36.3–37.3; O2SAT 93–100
[2017-10-10] MEDS: 0.9% Normal Saline 1,000 ML 60 ML IV ×2 (04:42→17:14)
[2017-10-10] MEDS: Acyclovir 5% Tube 1 APPLIC TOPICAL ×5 (06:22→22:29)
[2017-10-10] MEDS: Metoprolol Tartrate 50 MG Tablet PO ×2 (08:11→22:29)
[2017-10-10] MEDS: Multivitamins,Therapeutic Tablet 1 TABLET PO (08:11)
[2017-10-10] MEDS: Aspirin 81 MG TAB.CHEW PO (08:11)
[2017-10-10] MEDS: Famotidine 20 MG Tablet PO ×2 (08:12→22:29)
[2017-10-10] MEDS: amLODIPine 10 MG Tablet PO (08:12)
[2017-10-10] MEDS: guaiFENesin 1,200 MG Tablet 1200 MG PO ×2 (08:12→22:29)
[2017-10-10] MEDS: Ascorbic Acid 500 MG Tablet 1000 MG PO (08:12)
[2017-10-10] MEDS: Enoxaparin 40 MG/0.4 ML Syringe SC (09:57)
--- NOTE | 2017-10-10 10:19 | PN_ITS ---
Subjective: Patient seen and examined, no acute complaints. at bedside. States he feels pretty good today. Denies any significant shortness of breath, cough, fever/chills. He has not had any nausea or vomiting. He remains afebrile and is 96% on room air. He has been working with physical therapy and doing well ambulating the halls. He is receiving acyclovir for cold sores on his lips. He remains on Levaquin IV. Awaiting transfer to [facility]. Objective: Clinical Impression(s) from Imaging Studies Chest CT 10/05/17 09:17 IMPRESSION: Small to moderate loculated left effusion. Left lower lung consolidation. Aortic graft in place. Electronically Signed: Toñito Wilkins DO at 10:58 EST , Service support , Thoracentesis Ultrasound 10/07/17 10:00 IMPRESSION: Uneventful diagnostic and therapeutic ultrasound guided thoracentesis yielding 120ml of fluid. Linear septations precluded additional drainage. Electronically Signed: Brian Chicas MD at 10:46 EST , Service support , Chest CT 10/09/17 14:43 IMPRESSION: No substantial changes from the prior exam. Small dependent right pleural effusion and mild basilar atelectatic changes. Consolidation and marked volume loss and basilar segments of the left lower lobe, some sparing of the superior segment. Volume loss and consolidation in the dependent portion of the lingula. Large and probably at least partly loculated left pleural effusion in the lateral, anterior, posterior and subpulmonic space. Stable shotty mediastinal lymph nodes. Indeterminate for exclusion of left hilar mass or adenopathy. Stable endovascular stents of the aneurysmal thoracic aorta. Right hydronephrosis with multiple renal cysts. Calcified granulomata of the spleen. Contracted or retracted gallbladder calcifications. Electronically Signed: Cha Madrid MD at 16:25 EST , Service support , - Physical Exam General: Alert, Oriented x3, Cooperative, No apparent distress, Well developed, Well nourished HEENT: Atraumatic, Normocephalic Oral: Moist Mucosa Neck: Supple Lungs: - - very diminished L mid to base, otherwise CTA Cardiovascular: Regular rate, Regular Rhythm, Normal S1, Normal S2, No murmurs Abdomen: Bowel Sounds Present, Soft, Non Tender Extremities: No cyanosis, Edema - unchanged Skin: No rashes Musculoskeletal: No Tenderness to Palpation of Joints or Extremities Lymphatic: No Cervical, Supraclavicular, or Inguinal Adenopathy Neurological: Neuro grossly intact Psych/Mental Status: Alert and oriented to time, place, person, mood and affect Vital Signs Temp Pulse Resp BP Pulse Ox 97.7 F 78 18 128/82 96 10/10/17 08:00 10/10/17 08:11 10/10/17 08:00 10/10/17 08:11 10/10/17 08:00 Oxygen Flow Rate 2 Oxygen Delivery Method Room Air Weight: 130.6 kg Body Mass Index (BMI) 35.0 Intake and Output for Last 24 Hours 10/08/17 10/09/17 10/10/17 23:59 23:59 23:59 Intake Total 1393 2980 583 Output Total 750 1800 1520 Balance 643 1180 -937 Microbiology Past 72 Hours 10/07/17 10:15 Gram Stain - Final Fluid - Thoracentesis Fluid Body Fluid Culture - Final Culture exhibits no growth. Anaerobic Culture - Preliminary No growth in 48 hours. 10/04/17 23:10 Gram Stain - Final Sputum, Expectorated/Coughed Respiratory Culture - Final Laboratory Tests Past 24 Hrs 10/07/17 10:15 Fluid pH 6.9 Assessment/Plan RECOMMENDATIONS: 1. Continue Levaquin per ID 2. Continue bronchodilators on as needed basis 3. Supplemental oxygen as needed to keep saturations 88% or higher 4. Encourage I.S. and increase activity as tolerated 5. Transfer to tertiary care center for cardiothoracic evaluation` 6. Follow-up in the outpatient pulmonary clinic for PFTs and possibly a formal walking oximetry pending clinical course IMPRESSIONS: 1. Streptococcal pneumonia Recent hospitalization for streptococcal septicemia. Thoracentesis on 10/07 with 120 mL of fluid removed, was exudative and suggestive of empyema. Continue Levaquin per ID. Patient does appear clinically well, no leukocytosis , fevers. Still has mildly productive cough. Had a repeat CT chest 10/09 with persistent volume loss/consolidation with large loculated pleural effusion to left. Recommend patient to be transferred to tertiary care center for CT evaluation. Continue broncho-dilators as needed, has not required as of now. Encourage I.S. and increase activity as tolerated. Continue supplemental oxygen as needed to maintain saturations 88% or higher. Walking oximetry completed, no need for supplemental oxygen at d/c. Have the patient follow up in the pulmonary office on an outpatient basis pending his course at [facility], will schedule further pulmonary testing at that time as indicated. 2. Pulmonary hypertension Echocardiogram indicates mild pulmonary hypertension with an RVSP of 39 mmHg. Would evaluate the patient for exertional hypoxia and provide supplemental oxygen as needed. Would also recommend outpatient pulmonary function tests with interest of diffusing lung capacity. Also would consider outpatient evaluation for other conditions that may have contributed to pulmonary hypertension such as sleep disordered breathing. 3. History of thoracic aortic aneurysm repair/essential hypertension/ dyslipidemia/obesity/advanced age Complicates care, management, recovery, and prognosis. Resume all home medications as tolerated, defer to hospitalist. This note was generated with [employer] dictation software. It may contain incorrect words, spelling, and punctuation that were not noted in checking the note before signing.
--- NOTE | 2017-10-10 10:26 | PCM.PN.ID ---
Subjective: Feeling ok, no fever, mild loose stool but is on stool softener. - Physical Exam General: Alert, Cooperative, No apparent distress Lungs: Diminished - in L base Cardiovascular: Regular rate, Regular Rhythm Abdomen: Soft, Non Tender, Non-Distended Skin: No rashes Vital Signs Temp Pulse Resp BP Pulse Ox 97.7 F 78 18 128/82 96 10/10/17 08:00 10/10/17 08:11 10/10/17 08:00 10/10/17 08:11 10/10/17 08:00 Oxygen Flow Rate 2 Oxygen Delivery Method Room Air Weight: 130.6 kg Body Mass Index (BMI) 35.0 Intake and Output for Last 24 Hours 10/08/17 10/09/17 10/10/17 23:59 23:59 23:59 Intake Total 1393 2980 583 Output Total 750 1800 1520 Balance 643 1180 -937 Microbiology Past 72 Hours 10/07/17 10:15 Gram Stain - Final Fluid - Thoracentesis Fluid Body Fluid Culture - Final Culture exhibits no growth. Anaerobic Culture - Preliminary No growth in 48 hours. 10/04/17 23:10 Gram Stain - Final Sputum, Expectorated/Coughed Respiratory Culture - Final Laboratory Tests Past 24 Hrs 10/07/17 10:15 Fluid pH 6.9 Route of nutrition/ use of supplements: [] Nutritional Intake: [] IV Site: [] Barnett Catheter: [] - Assessment/Plan Antibiotics: [] Assessment/Plan: [] L chest parapneumonic loculated effusion with s.pneumo in blood - now s.p thoracentesis 10/07. Repeat CT shows residual large loculated effusion. Cont levaquin, recommend transfer for thoracic surgical eval. will follow, d/w special education case manager
--- NOTE | 2017-10-10 13:55 | PCM.DC.SUM ---
Discharge Date and Diagnosis Date of Admission: 10/04/17 Date of Discharge: 10/10/17 - Secondary Discharge Diagnosis Chronic Problems Dyslipidemia (Chronic) Essential (primary) hypertension (Chronic) Obesity (BMI 30.0-34.9) (Chronic) H/O thoracic aortic aneurysm repair (Chronic) Hospital Course and Treatment Summary of Care Provided: This is a 72 years old male patient admitted because of fever and low blood pressure with recent history of community-acquired pneumonia, discharged from the hospital 1 week ago and he was found to have exudative left-sided pleural effusion. Underwent thoracentesis and had a repeat CT scan that showed loculated left-sided effusion. The patient was by infectious disease and pulmonary medicine who recommended the patient be transferred to tertiary care for CT surgery evaluation. He was transferred to [facility] for further management. He was transferred in a stable condition. 1. Loculated left pleural effusion; transferred for CT surgery evaluation for possible decortication. 2 recent pneumococcal pneumonia; continue on Levaquin. 3. hypokalemia; has been replaced. 4 hypertension; this controlled. . 5 history of thoracic aortic aneurysm: Status post repair, 6 hyperlipidemia: Continue statins. Discharge Diet: No Restrictions Home Medications: Medications to take at Discharge Amlodipine [Norvasc] 10 mg PO DAILY 09/27/16 Ascorbic Acid [Vitamin C] 1,000 mg PO DAILY 09/27/16 Aspirin [Aspirin, Baby] 81 mg PO DAILY@0800 09/27/16 Atorvastatin Calcium [Lipitor] 20 mg PO QHS 09/27/16 Cabergoline 2 tab PO TUFR 09/27/16 Losartan/Hydrochlorothiazide [Losartan-Hctz 100-25 mg Tab] 1 each PO BREAKFAST 09/27/16 Metoprolol Tartrate [Lopressor (beta [place])] 50 mg PO BID 09/27/16 Multivitamins,Therapeutic [Multivitamin] 1 tablet PO DAILY 09/27/16 [place]-3 Fatty Acids/Fish Oil [[place] 3 1,000 mg Softgel] 1 each PO DAILY 09/27/16 Acetaminophen [Tylenol Tablet] 650 mg PO Q6H PRN PRN tablet 10/02/17 Guaifenesin [Mucinex] 1,200 mg PO BID #20 tablet 10/02/17 Levofloxacin [Levaquin] 750 mg PO DAILY #5 tablet 10/02/17 Potassium Chloride [K-Dur] 20 meq PO BIDCM #60 tablet 10/02/17 Primary Care Physician: Daniel Foster [Primary Care Provider] - Within 2 Weeks Disposition: Acute care Hospital Patient Condition:: Good Meaningful Use Info Meaningful Use Diagnoses (Choose all that apply): None applicable
--- NOTE | 2017-10-10 13:58 | DS.PCM_ITS ---
Discharge Date and Diagnosis Date of Admission: 10/04/17 Date of Discharge: 10/10/17 - Secondary Discharge Diagnosis Chronic Problems Dyslipidemia (Chronic) Essential (primary) hypertension (Chronic) Obesity (BMI 30.0-34.9) (Chronic) H/O thoracic aortic aneurysm repair (Chronic) Hospital Course and Treatment Summary of Care Provided: This is a 72 years old male patient admitted because of fever and low blood pressure with recent history of community-acquired pneumonia, discharged from the hospital 1 week ago and he was found to have exudative left-sided pleural effusion. Underwent thoracentesis and had a repeat CT scan that showed loculated left-sided effusion. The patient was by infectious disease and pulmonary medicine who recommended the patient be transferred to tertiary care for CT surgery evaluation. He was transferred to [facility] for further management. He was transferred in a stable condition. 1. Loculated left pleural effusion; transferred for CT surgery evaluation for possible decortication. 2 recent pneumococcal pneumonia; continue on Levaquin. 3. hypokalemia; has been replaced. 4 hypertension; this controlled. . 5 history of thoracic aortic aneurysm: Status post repair, 6 hyperlipidemia: Continue statins. Discharge Diet: No Restrictions Home Medications: Medications to take at Discharge Amlodipine [Norvasc] 10 mg PO DAILY 09/27/16 Ascorbic Acid [Vitamin C] 1,000 mg PO DAILY 09/27/16 Aspirin [Aspirin, Baby] 81 mg PO DAILY@0800 09/27/16 Atorvastatin Calcium [Lipitor] 20 mg PO QHS 09/27/16 Cabergoline 2 tab PO TUFR 09/27/16 Losartan/Hydrochlorothiazide [Losartan-Hctz 100-25 mg Tab] 1 each PO BREAKFAST 09/27/16 Metoprolol Tartrate [Lopressor (beta [place])] 50 mg PO BID 09/27/16 Multivitamins,Therapeutic [Multivitamin] 1 tablet PO DAILY 09/27/16 [place]-3 Fatty Acids/Fish Oil [[place] 3 1,000 mg Softgel] 1 each PO DAILY Acetaminophen [Tylenol Tablet] 650 mg PO Q6H PRN PRN tablet 10/02/17 Guaifenesin [Mucinex] 1,200 mg PO BID #20 tablet 10/02/17 Levofloxacin [Levaquin] 750 mg PO DAILY #5 tablet 10/02/17 Potassium Chloride [K-Dur] 20 meq PO BIDCM #60 tablet 10/02/17 Primary Care Physician: Daniel Foster [Primary Care Provider] - Within 2 Weeks Disposition: Acute care Hospital Patient Condition:: Good Meaningful Use Info Meaningful Use Diagnoses (Choose all that apply): None applicable
--- NOTE | 2017-10-10 13:59 | PCM.DC ---
- Discharge Diagnoses Current Active Problems: Current Active and Chronic Problems Dyslipidemia (Chronic) Essential (primary) hypertension (Chronic) Obesity (BMI 30.0-34.9) (Chronic) You will use the following diet at home:: Regular Discharge Activity: Return to Normal Activity Allergies/Adverse Reactions: Allergies No Known Allergies Allergy (Verified 10/04/17 18:18) Medications to take at Discharge Amlodipine [Norvasc] 10 mg PO DAILY 09/27/16 Ascorbic Acid [Vitamin C] 1,000 mg PO DAILY 09/27/16 Aspirin [Aspirin, Baby] 81 mg PO DAILY@0800 09/27/16 Atorvastatin Calcium [Lipitor] 20 mg PO QHS 09/27/16 Cabergoline 2 tab PO TUFR 09/27/16 Losartan/Hydrochlorothiazide [Losartan-Hctz 100-25 mg Tab] 1 each PO BREAKFAST 09/27/16 Metoprolol Tartrate [Lopressor (beta [place])] 50 mg PO BID 09/27/16 Multivitamins,Therapeutic [Multivitamin] 1 tablet PO DAILY 09/27/16 [place]-3 Fatty Acids/Fish Oil [[place] 3 1,000 mg Softgel] 1 each PO DAILY 09/27/16 Acetaminophen [Tylenol Tablet] 650 mg PO Q6H PRN PRN tablet 10/02/17 Guaifenesin [Mucinex] 1,200 mg PO BID #20 tablet 10/02/17 Levofloxacin [Levaquin] 750 mg PO DAILY #5 tablet 10/02/17 Potassium Chloride [K-Dur] 20 meq PO BIDCM #60 tablet 10/02/17 Primary Care Physician: Daniel Foster [Primary Care Provider] - Within 2 Weeks Proposed Discharge Date: 10/10/17
--- NOTE | 2017-10-10 18:41 | NURSING ---
Jese Zuleta RN informed of tele strip and given to interpret.
[2017-10-10 19:42] LABS: Magnesium 2.1 mg/dL (1.8-2.4)
[2017-10-10] MEDS: Atorvastatin Calcium 20 MG Tablet PO (22:29)
[2017-10-11] MEDS: Aspirin 81 MG TAB.CHEW PO (08:00)
[2017-10-11] MEDS: Multivitamins,Therapeutic Tablet 1 TABLET PO (08:00)
[2017-10-11] MEDS: 0.9% Normal Saline 1,000 ML 60 ML IV (09:54)
[2017-10-11 10:00] VITALS: PULSE 78
[2017-10-11] MEDS: Metoprolol Tartrate 50 MG Tablet PO (10:00)
[2017-10-11] MEDS: Enoxaparin 40 MG/0.4 ML Syringe SC (10:00)
[2017-10-11] MEDS: CABERGOLINE 0.5 MG TABLET 1 MG PO (10:00)
[2017-10-11] MEDS: guaiFENesin 1,200 MG Tablet 1200 MG PO ×2 (10:00→22:00)
[2017-10-11] MEDS: amLODIPine 10 MG Tablet PO (10:00)
[2017-10-11] MEDS: Ascorbic Acid 500 MG Tablet 1000 MG PO (10:00)
[2017-10-11] MEDS: Famotidine 20 MG Tablet PO ×2 (10:00→22:00)
[2017-10-11 12:00] VITALS: PULSE 74
[2017-10-11] MEDS: Metoprolol Tartrate 25 MG Tablet 75 MG PO (12:00)
[2017-10-11] MEDS: Atorvastatin Calcium 20 MG Tablet PO (22:00)
[2017-10-12] MEDS: 0.9% Normal Saline 1,000 ML 60 ML IV (04:45)
[2017-10-12 07:35] VITALS: PULSE 80
[2017-10-12 07:45] VITALS: BP 127/68; PULSE 80; RESP 18; TEMP 36.8; O2SAT 96
[2017-10-12] MEDS: Aspirin 81 MG TAB.CHEW PO (08:18)
[2017-10-12] MEDS: Multivitamins,Therapeutic Tablet 1 TABLET PO (08:18)
[2017-10-12 09:45] VITALS: PULSE 80
[2017-10-12] MEDS: Enoxaparin 40 MG/0.4 ML Syringe SC (09:45)
[2017-10-12] MEDS: amLODIPine 10 MG Tablet PO (09:45)
[2017-10-12] MEDS: guaiFENesin 1,200 MG Tablet 1200 MG PO (09:45)
[2017-10-12] MEDS: Metoprolol Tartrate 25 MG Tablet 75 MG PO ×2 (09:45→11:29)
[2017-10-12] MEDS: Famotidine 20 MG Tablet PO (09:45)
[2017-10-12] MEDS: Ascorbic Acid 500 MG Tablet 1000 MG PO (09:45)
[2017-10-12 11:29] VITALS: PULSE 87
[2017-10-12 12:00] VITALS: PULSE 67
--- NOTE | 2017-10-12 12:20 | NURSING ---
report called to Bell at [facility]. understands transfer reason. IV SL intact to left ac for transfer. and patient understands transfer information and [id number] bed 19 location. Denies further questions.
== END 2017-10-12 12:21 | disposition short-term general hospital (02) | DRG 177 ==
LOC: ED 10-11 16:55 → MS3 10-11 16:55
PROVIDERS: Hospitalist; Internal Medicine; Internal Medicine Critical Care Medicine; Admitting Provider Family Medicine; Emergency Provider Emergency Medicine; Family Provider Family Medicine; PCP Family Medicine; Visit Provider Internal Medicine
DX: J86.9 Pyothorax without fistula (principal); J13 Pneumonia due to Streptococcus pneumoniae; I27.20 Pulmonary hypertension, unspecified; E86.0 Dehydration; E78.5 Hyperlipidemia, unspecified; E66.9 Obesity, unspecified; I10 Essential (primary) hypertension; B00.1 Herpesviral vesicular dermatitis; Z68.35 Body mass index [BMI] 35.0-35.9, adult; Z87.891 Personal history of nicotine dependence; E87.6 Hypokalemia; Z86.79 Personal history of other diseases of the circulatory system; Z79.899 Other long term (current) drug therapy
CPT/HCPCS: 32555; 36415; 71010; 71250; 80048; 80053; 80202; 82945; 83605; 83615; 83735; 83880; 83986; 84100; 84157; 84484; 85025; 85027; 85610; 85730; 87040; 87070; 87075; 87205; 87449; 87633; 87641; 88108; 88305; 88313; 89050; 93005; 93306; 94640; 94667; 94668; 97161; 97165; 99251; 99285; J7030; J7040; A4216; G0463

== ENCOUNTER 2018-06-24 16:38 | Inpatient (IN) | payer MEDICARE, BC, SELFPAY ==
[2018-06-24 16:39] VITALS: BP 90/67; PULSE 104; RESP 24; TEMP 37.6; O2SAT 100; BMI 35.6
[2018-06-24 16:53] VITALS: BP 98/67; PULSE 96; RESP 22; O2SAT 92
--- NOTE | 2018-06-24 16:53 | ED.VISSUMM ---
- ER Visit Summary Date of Service: 06/24/18 Chief Complaint: Shortness of breath and weakness History of Present Illness: The patient is a 73 M who presents with shortness of breath and weakness that has been getting worse over the past 2 weeks. states the patient had similar symptoms with pneumonia last September. Patient denies any cough or fevers. Patient did have recent left arm surgery for a pinched nerve. Patient denies any chest pain. Denies any palpitations. Patient states nothing seems to make her pain better or worse. Patient states that he feels like he does not have enough air to get around. Patient denies any leg pain or swelling. Physical Examination: Vital signs are stable. Patient is afebrile. Patient is in no acute distress. Pupils are equal, round, reactive to light bilateral. Extraocular muscles are intact. There is scleral icterus noted bilaterally. Skin is warm and dry. There is jaundice noted. Oral mucosa is pink and moist. Neck is supple. There is no JVD noted. Heart was regular rate and rhythm. Lungs are clear bilaterally. There is adequate respiratory effort noted. Abdomen is soft and nontender. Extremities are intact. There is no edema noted. Cranial nerves II through XII are intact. There are no focal motor or sensory deficits noted. The remaining physical exam is within normal limits. Test Results: EKG showed normal sinus rhythm with a rate of 94. There are no acute ST or T-wave changes. There is a right bundle branch block and left anterior fascicular block noted. This was unchanged compared to previous EKG dated 10/04/2017. CBC showed a slight leukocytosis of 11.3. There is a mild hypokalemia of 2.9. Creatinine was elevated at 1.47 and BUN was slightly elevated at 23. Total bilirubin was elevated at 6.0. AST, ALT, and alk phos were all normal. Troponin was normal at 0.022. BNP was only slightly elevated at 292.9. Chest x-ray shows suspected mild pulmonary edema. There is no acute infiltrate. Emergency Department Course and Treatment: Case was discussed with Dr. Turner. He will admit the patient to his service. Patient and his understood and were agreeable with the plan. All questions were answered. Disposition: Admit to hospital Impression: Acute kidney injury, hyperbilirubinemia, generalized weakness This note was generated with Dragon dictation software. It may contain incorrect words, spelling, and punctuation that were not noted in review of the chart prior to signing ED Disposition - Plan for ED Patient: Disposition: Acute Care Hospital [facility] Chief Complaint: Weakness Diagnosis: Acute kidney injury (nontraumatic), Hyperbilirubinemia, Generalized weakness Referrals: Daniel Foster [Primary Care Provider] -
[2018-06-24 17:10] VITALS: PULSE 93; RESP 25
[2018-06-24] MEDS: Ipratropium/Albuterol Sulfate 3 ML AMPUL.NEB INHALATION (17:10)
[2018-06-24 17:21] LABS: Absolute Lymphocyte Count 1.97 X10^3/ul (0.83-4.51); Absolute Neutrophil Count 8.1 X10^3/uL (2.0-7.7); Basophil# 0.02 X10^3/uL; Basophil% 0.2 % (0-1); Hematocrit 42.6 % (40-54); Hemoglobin 14.2 g/dl (13.0-16.5); Lymphocyte # 1.97 X10^3/ul (4.0); Lymphocyte % 17.4 % (19-41); Mean Corp Hgb Conc 33.3 g/gl (32-36); Mean Corpuscular Hgb 30.7 pg (27.0-32.0); Mean Corpuscular Volume 92.2 fL (80-94); Mean Platelet Vol. 9.8 fl (6.2-12.0); Monocyte% 10.6 % (0-10); Neutrophil # 8.05 X10^3/uL (2.7-7.7); Neutrophil % 71.4 % (47-70); Platelet Count 147 K/mm3 (150-450); RBC Distribution Width CV 14.4 % (11.6-14.6); RBC Distribution Width SD 47.2 fl (35.1-43.9); Red Blood Count 4.62 M/mm3 (4.6-6.2); White Blood Count 11.3 K/mm3 (4.4-11.0)
[2018-06-24 17:28] LABS: POSITIVE COUNT NO; POSITIVE DIFFERENTIAL NO; POSITIVE MORPHOLOGY NO
[2018-06-24 17:35] LABS: ALB/GLOB Ratio 0.8 RATIO (0.9-2.4); AST(SGOT) 14 U/L (15-37); Alanine Aminotransfer ALT/SGPT 18 U/L (16-61); Albumin, Serum 3.1 g/dL (3.2-5.0); Alkaline Phosphatase 65 U/L (45-117); Anion Gap 7 (5-15); BUN 23 mg/dL (7-18); BUN/Creat Ratio 15.6 RATIO (10-20); Calcium,Total 8.4 mg/dL (8.5-10.1); Chloride 102 mmol/L (98-107); Creatinine, Serum 1.47 mg/dL (0.70-1.30); EST Glomerular Filtration Rate 50 mL/min (>60); Est Glom Filt Rate - Afr Amer 60 mL/min (>60); Estimated Creatinine Clearance 53.31 ml/min; Globulin 3.7 g/dL (2.2-4.2); Glucose 126 mg/dL (74-106); Potassium 2.9 mmol/L (3.5-5.1); Protein, Total 6.8 g/dL (6.4-8.2); Sodium Level 138 mmol/L (136-145)
[2018-06-24 18:25] LABS: BNP,B-Type NATRIURETIC PEPTIDE 292.9 pg/mL (0-100)
--- NOTE | 2018-06-24 19:52 | PCM.HP.STD ---
Problem List (1) Acute kidney injury (nontraumatic) Status: Acute (2) Hyperbilirubinemia Status: Acute (3) Acute respiratory distress Status: Acute (4) Hypokalemia Status: Acute (5) H/O thoracic aortic aneurysm repair Status: Chronic (6) Essential (primary) hypertension Status: Chronic History of Present Illness Date of Admission: 06/24/18 Chief Complaint: Dyspnea and generalized weakness ?2 weeks. The patient is a 73 year old M with a significant history of hypertension, thoracic aortic aneurysm repair with a stent; polyp status post colectomy; who presented because of progressively worsening shortness of breath at rest and generalized weakness x weeks. His noted that he had transient wheezing about 2 weeks ago. He denies any fever,cough, orthopnea or PND. His stated that the last time patient had these symptoms he was diagnosed with pneumonia. His stated that she called her PCP and was advised to bring the patient to the emergency department for further evaluation. At emergency department his white count was 11.3. He was noted to have elevated bilirubin and his BNP was 292. His creatinine was elevated at 1.47. On June 02 2018 patient had a surgery at his left elbow because of a pinched nerve. Past Medical History Past Medical History (Chronic Problems): Chronic Problems H/O thoracic aortic aneurysm repair (Chronic) Essential (primary) hypertension (Chronic) Dyslipidemia (Chronic) Obesity (BMI 30.0-34.9) (Chronic) Allergies No Known Allergies Allergy (Verified 06/24/18 16:39) Home Medications: Ambulatory Orders Medication Instructions Recorded Amlodipine [Norvasc] 10 mg PO DAILY 09/27/16 Ascorbic Acid [Vitamin C] 1,000 mg PO DAILY 09/27/16 Atorvastatin Calcium [Lipitor] 20 mg PO QHS 09/27/16 Cabergoline 1 mg PO TUFR 09/27/16 Metoprolol Tartrate [Lopressor 50 mg PO BID 09/27/16 (beta ashutosh)] Multivitamins,Therapeutic 1 tablet PO DAILY 09/27/16 [Multivitamin] Milnor-3 Fatty Acids/Fish Oil 1 capsule PO DAILY 09/27/16 [Milnor 3 1,000 mg Softgel] Aspirin E.C. [Ecotrin] 81 mg PO DAILY@0800 06/24/18 Losartan/Hydrochlorothiazide 1 tab PO DAILY 06/24/18 [Hyzaar 100-25 Tablet] Potassium Chloride [K-Dur] 20 meq PO DAILY 06/24/18 Surgical History: - - TAA repair Psychiatric History: No pertinent psych hx Lives: Spouse/ Significant Other Smoking Status: Former smoker - *Family History Maternal History Items: Cancer - colon Paternal History Items: Heart Disease Sibling History Items: Cancer, Heart Disease Review of Systems Constitutional: Reports: Weakness HEENT: Denies: Head Aches, Sinus Congestion, Sinus Drainage Cardiovascular: Denies: Chest Pain, Palpitations Respiratory: Reports: Shortness of breath at rest Gastrointestinal: Denies: Abdominal Pain, Nausea, Vomiting Genitourinary: Denies: Dysuria Musculoskeletal: Denies: Joint Pain, Joint Tenderness Skin: Reports: - - Pallor Neurological: Denies: Numbness, Tingling, Focal weakness Psychiatric: Denies: Anxiety, Depression, Homicidal Ideations, Suicidal Ideations Hematologic/ Lymphatic: Denies: Easy Bruising, Easy Bleeding VTE Information - Inpt Only VTE Present on Admission: No VTE Mechan Device Prophylaxis: None VTE Pharm Prophylaxis ordered?: Yes Patient Problems: Active and Suspected Problems Acute kidney injury (nontraumatic) (Acute) Hyperbilirubinemia (Acute) Generalized weakness (Acute) Acute respiratory distress (Acute) - Physical Exam General: Alert, Oriented x3, Cooperative, - - Patient looks tired and pale HEENT: Atraumatic, PERRLA, EOMI, Normocephalic, - - Mild sclera icterus Neck: Supple, No JVD, Negative Carotid Bruits Lungs: Clear to auscultation, Normal air movement Cardiovascular: Regular rate, No murmurs Abdomen: Bowel Sounds Present, Soft, Non Tender Extremities: No edema, Capillary Refill Less than 3 Seconds Skin: - - Pale at bilateral lower extremities Intact incision with Steri-Strips at the medial left elbow Musculoskeletal: No Tenderness to Palpation of Joints or Extremities Neurological: Cranial nerves II-XII grossly intact Psych/Mental Status: Normal Affect, Appropriate Vital Signs Temp Pulse Resp BP Pulse Ox 99.6 F H 93 25 H 98/67 92 06/24/18 16:39 06/24/18 17:10 06/24/18 17:10 06/24/18 16:53 06/24/18 16:53 Oxygen Delivery Method Room Air Weight: 132.903 kg Body Mass Index (BMI) 35.6 Laboratory Tests Past 24 Hrs 06/24/18 06/24/18 06/24/18 17:00 17:00 17:00 WBC 11.3 H RBC 4.62 Hgb 14.2 Hct 42.6 MCV 92.2 MCH 30.7 MCHC 33.3 RDW 14.4 RDW Differential 47.2 H Plt Count 147 L MPV 9.8 Immature Gran % (Auto) 0.400 Neut % (Auto) 71.4 H Lymph % (Auto) 17.4 L Granite % (Auto) 10.6 H Eos % (Auto) 0.0 Baso % (Auto) 0.2 Absolute Neuts (auto) 8.1 H Absolute Lymphs (auto) 1.97 Total Counted Not Reportable Sodium 138 Potassium 2.9 L Chloride 102 Carbon Dioxide 29.0 Anion Gap 7 BUN 23 H Creatinine 1.47 H Estim Creat Clear Calc 53.31 Est GFR (MDRD) Af Amer 60 Est GFR (MDRD) Non-Af 50 L BUN/Creatinine Ratio 15.6 Glucose 126 H Calcium 8.4 L Total Bilirubin 6.00 H AST 14 L ALT 18 Alkaline Phosphatase 65 Troponin I 0.022 B-Natriuretic Peptide 292.9 H Total Protein 6.8 Albumin 3.1 L Globulin 3.7 Albumin/Globulin Ratio 0.8 L Assessment/Plan All Active Problems Acute kidney injury (nontraumatic) (Acute) Hyperbilirubinemia (Acute) Generalized weakness (Acute) Acute respiratory distress (Acute) Sepsis (Acute) CAP (community acquired pneumonia) (Acute) Hypokalemia (Acute) The patient is a 73 year old M with a significant history of hypertension, thoracic aortic aneurysm repair with a stent; polyp status post colectomy; who presented because of progressively worsening shortness of breath at rest and generalized weakness; and was found to have low-grade fever, hyperbilirubinemia; mild leukocytosis; elevated creatinine; mildly elevated BNP and radiographic finding of mild pulmonary edema. . Acute respiratory distress and generalized weakness. Etiology of his respiratory distress is unclear at this time. Differential diagnosis includes debility Less likely due to heart failure or hypokalemic periodic paralysis or others. At this point suspicion of pneumonia is low because of nonproductive cough. The patient only had a mild fever, mild leukocytosis leukocytosis and chest x-ray is not classic for pneumonia Gentle fluid hydration for ISSAC. When he is much more hydrated we could repeat a chest x-ray to see whether it may give a pneumonia pattern. noted that shortness of breath improved with breathing treatment at emergency department:DuoNeb as needed. Incentive spirometer ordered He denies PND or orthopnea but with no clear etiology of his respiratory distress echocardiogram ordered. PT and OT to work with patient Elevated bilirubin A total bilirubin on admission was 6.0. His ALT, AST and alkaline phosphatase was normal. Differential Diagnoses includes Gilbert's syndrome, increased turn over of red blood cells; some biliary tract disease; or hyperbilirubinemia secondary to poor kidney clearance. Notably his alkaline phosphatase is not elevated. Ultrasound of liver gallbladder and biliary tract ordered. LDH and haptoglobin ordered. Severe hypokalemia Potassium on admission was 2.9. This could contribute to his weakness Urine potassium ordered. P.o. potassium and IV potassium ordered. Home potassium chloride continued BMP in am ISSAC Creatinine on admission was 1.47. His baseline creatinine is about 1. Gentle hydration with normal saline infusion Avoid nephrotoxic H/O Pituitary Tumor status post surgery Continue Cabergoline Hypertension Amlodipine, metoprolol, losartan and hydrochlorothiazide continued Hyperlipidemia Lipitor continued Right bundle branch block Unchanged from previous DVT prophylaxis Subcutaneous Lovenox Code Visit OBSV E&M: 06937 Initial observation care L3
[2018-06-24 20:54] VITALS: BMI 35.2
[2018-06-24 21:00] VITALS: BP 104/63; PULSE 91; RESP 18; TEMP 38.2; O2SAT 92
[2018-06-24] MEDS: 0.9% Normal Saline 1,000 ML 75 ML IV (21:13)
[2018-06-24 21:24] LABS: Thyroid Stim Hormone (TSH) 1.07 uIU/mL (0.358-3.74)
[2018-06-24] MEDS: Atorvastatin Calcium 20 MG Tablet PO (21:49)
[2018-06-24 21:50] VITALS: PULSE 91
[2018-06-24] MEDS: Metoprolol Tartrate 50 MG Tablet PO (21:50)
[2018-06-24 22:52] LABS: LDH 179 U/L (87-241)
[2018-06-24 23:00] VITALS: BP 109/64; PULSE 90; RESP 28; TEMP 38; O2SAT 92
[2018-06-25] VITALS (16 sets, daily range): BP systolic 79–124; BP diastolic 53–78; PULSE 81–98; RESP 16–28; TEMP 36.6–38.7; O2SAT 92–993
[2018-06-25 06:02] LABS: Absolute Lymphocyte Count 1.45 X10^3/ul (0.83-4.51); Absolute Neutrophil Count 7.7 X10^3/uL (2.0-7.7); Basophil# 0.01 X10^3/uL; Basophil% 0.1 % (0-1); Hematocrit 42.9 % (40-54); Hemoglobin 14.2 g/dl (13.0-16.5); Lymphocyte # 1.45 X10^3/ul (4.0); Lymphocyte % 14.3 % (19-41); Mean Corp Hgb Conc 33.1 g/gl (32-36); Mean Corpuscular Hgb 30.5 pg (27.0-32.0); Mean Corpuscular Volume 92.1 fL (80-94); Mean Platelet Vol. 9.9 fl (6.2-12.0); Monocyte# 0.97 X10^3/uL; Monocyte% 9.6 % (0-10); Neutrophil # 7.67 X10^3/uL (2.7-7.7); Neutrophil % 75.9 % (47-70); Platelet Count 131 K/mm3 (150-450); RBC Distribution Width CV 14.4 % (11.6-14.6); RBC Distribution Width SD 47.4 fl (35.1-43.9); Red Blood Count 4.66 M/mm3 (4.6-6.2); White Blood Count 10.1 K/mm3 (4.4-11.0)
[2018-06-25 06:12] LABS: Anion Gap 6 (5-15); BUN 21 mg/dL (7-18); BUN/Creat Ratio 16.5 RATIO (10-20); Calcium,Total 8.4 mg/dL (8.5-10.1); Chloride 104 mmol/L (98-107); Creatinine, Serum 1.27 mg/dL (0.70-1.30); EST Glomerular Filtration Rate 59 mL/min (>60); Est Glom Filt Rate - Afr Amer 71 mL/min (>60); Glucose 123 mg/dL (74-106); POSITIVE COUNT NO; POSITIVE DIFFERENTIAL NO; POSITIVE MORPHOLOGY NO; Potassium 3.2 mmol/L (3.5-5.1); Sodium Level 139 mmol/L (136-145)
--- NOTE | 2018-06-25 06:49 | PCM.PN.HOSP ---
Patient Problems: Active and Suspected Problems Acute kidney injury (nontraumatic) (Acute) Hyperbilirubinemia (Acute) Generalized weakness (Acute) Acute respiratory distress (Acute) Subjective: Patient with no acute events overnight per self and per nursing report. Patient states he feels as though his breathing better and less weak; however, still notably debilitated. and daughter present and states that he has had severe weakness and debility starting this past Saturday and had not necessarily noticed his yellowing in color but now it is apparent to them and is unclear how long this has been going on. He denies any associated nausea, emesis or abdominal pain. Patient denies fevers, chills, nausea, emesis, abdominal pain, chest pain or worsening dyspnea. Objective: Physical Examination: General: awake, alert, oriented x 3 and cooperative, seated upright in bed in no apparent distress. Skin: jaundiced color, normal turgor, no cyanosis. HEENT: AT/NC, EOMI, PERRLA, mildly dry MM, no carotid bruits or JVD noted. Lungs: Diminished BS BL bases, moderate effort, no rales, ronchi or wheezing. Heart: Regular rate and rhythm; no gallop, rub audible. Abdomen: soft, obese, NTTP, no RUQ pain to palpation, ND, normal BS, unable to discern HSM. Extremities: no cyanosis, clubbing, BL LE pedal to distal pinzon, non-pitting. Neurological: patient awake, alert, oriented x 3; cognitive function intact; pupils equally reactive to light and accomodation; cranial nerves II-XII grossly normal, moving all 4 extremities, no focal deficits, strength severely globally decreased. Psychiatric: affect appears normal, mildly flat, no acute evidence of depressive or anxiety feelings. Vitals/I&O's: Vital Signs Temp Pulse Resp BP Pulse Ox 99.6 F H 89 18 123/73 H 92 06/25/18 05:45 06/25/18 05:45 06/25/18 05:45 06/25/18 05:45 06/25/18 05:45 Oxygen Delivery Method Room Air Weight: 291 lb 10.745 oz Body Mass Index (BMI) 35.2 Intake and Output for Last 24 Hours 06/23/18 06/24/18 06/25/18 23:59 23:59 23:59 Intake Total 1491 / 1491 Output Total 550 / 550 Balance 941 / 941 Laboratory Results 06/24/18 21:50: Urine Potassium 79.0 06/25/18 05:10: WBC 10.1, RBC 4.66, Hgb 14.2, Hct 42.9, MCV 92.1, MCH 30.5, MCHC 33.1, RDW 14.4, RDW Differential 47.4 H, Plt Count 131 L, MPV 9.9, Immature Gran % (Auto) 0.100, Neut % (Auto) 75.9 H, Lymph % (Auto) 14.3 L, Weber % (Auto) 9.6, Eos % (Auto) 0.0, Baso % (Auto) 0.1, Absolute Neuts (auto) 7.7, Absolute Lymphs (auto) 1.45, Total Counted Not Reportable 06/25/18 05:10: Sodium 139, Potassium 3.2 L, Chloride 104, Carbon Dioxide 29.0, Anion Gap 6, BUN 21 H, Creatinine 1.27, Estim Creat Clear Calc 61.70, Est GFR (MDRD) Af Amer 71, Est GFR (MDRD) Non-Af 59 L, BUN/Creatinine Ratio 16.5, Glucose 123 H, Calcium 8.4 L 06/25/18 05:10: Haptoglobin Pending Current Medications Acetaminophen (Tylenol) 650 mg PO Q6H PRN PRN PRN Reason: Mild Pain (1-3)/Temp > 100.7 F Albuterol/Ipratropium (Duoneb) 3 ml INHALATION Q4H PRN PRN PRN Reason: SOB &/OR WHEEZING Amlodipine Besylate (Norvasc) 10 mg PO DAILY [facility] Ascorbic Acid (Vitamin C) 1,000 mg PO DAILY [facility] Aspirin (Ecotrin) 81 mg PO DAILY@0800 [facility] Atorvastatin Calcium (Lipitor) 20 mg PO QHS [facility] Last Admin: 06/24/18 21:49 Dose: 20 mg Bisacodyl (Dulcolax) 5 mg PO DAILY PRN PRN PRN Reason: Constipation Cabergoline (Cabergoline) 1 mg PO TUFR [facility] Enoxaparin Sodium (Lovenox) 40 mg SC DAILY@1000 [facility] Hydrochlorothiazide (Hctz) 25 mg PO DAILY [facility] Sodium Chloride () 1,000 mls @ 75 mls/hr IV .[id number] [facility] Last Admin: 06/24/18 21:13 Dose: 75 mls/hr Losartan Potassium (Cozaar) 100 mg PO DAILY [facility] Magnesium Hydroxide (Milk Of Magnesia) 30 ml PO DAILY PRN PRN PRN Reason: Constipation Metoprolol Tartrate (Lopressor (Beta Elli)) 50 mg PO BID [facility] Last Admin: 06/24/18 21:50 Dose: 50 mg Multivitamins (Multivitamin) 1 tablet PO DAILYCM [facility] Nutritional Formula (Lactose Free) (Ensure Enlive) 120 ml PO 4X/DAY [facility] Last Admin: 06/24/18 21:51 Dose: 120 ml [id number] Ethyl Esters (Lovaza) 1 gm PO DAILY [facility] Potassium Chloride (K-Dur) 20 meq PO DAILYCM [facility] Sodium Chloride () 5 - 30 ml IV UD PRN PRN Reason: SALINE FLUSH Medical Necessity - Tobacco Use Smoking Status: Former smoker Assessment/Plan All Active Problems Acute kidney injury (nontraumatic) (Acute) Hyperbilirubinemia (Acute) Generalized weakness (Acute) Acute respiratory distress (Acute) Sepsis (Acute) CAP (community acquired pneumonia) (Acute) Hypokalemia (Acute) The patient is a 73 y/o M w/ PMHx: HTN, HLD, Former Tobacco use, Hx Thoracic Aortic Aneurysm Repair s/p stenting who presents to the [facility] ED on 06/24/18 with history of progressively worsening debility, weakness and dyspnea x 2 weeks. (1) Malaise, Weakness, Debility: Unclear specific etiology, possibly secondary to electrolyte disturbance as noted, ISSAC, ? chronic cholecystitis, possible underlying undiagnosed CHF. Admitted to [place], continue work-up as noted, fall precautions, PT, OT, CM consulted. UA pending. (2) Acute kidney injury: Secondary to dehydration, suspected hypovolemia. Admission BUN/Cr 23/1.47, prior baseline creatinine noted to be 0.8-0.9. Will hydrate, hold nephrotoxic medications and trend BMP. 06/25/18 BUN/Cr 21/1.27. (3) Hypokalemia: Admission K+ 2.9, supplementation given, repeat level 3.2, will administer additional potassium supplementation and repeat BMP. (4) Hyperglycemia, mild: Admission glucose 126, repeat 123 this a.m., hemoglobin A1c pending. (5) Elevated Bilirubin, Unclear Etiology, ? Chronic Cholecystitis: Admission CMP w/ TBili 6, AST/ALT 14/18, Liver US w/ stones and contracted gallbladder consistent with chronic cholecystitis with no acute process, multiple right renal cysts. Given liver US findings, generalized complaints upon admission will request Surgery consultation, Dr. Quezada. (6) ? Underlying CHF, Unclear Type: Noted history of dyspnea, mild BNP elevation, CXR w/ mild pulmonary edema suspected, trop normal x 1, ECHO requested, mag pending. TSH normal. (7) Hypertension: Continue home regimen including metoprolol, Norvasc, holding arm and hydrochlorothiazide temporarily given ISSAC and mild hydration, restart once appropriate, PRN hydralazine. (8) Hyperlipidemia: Continue home statin regimen. (9) Hx Thoracic Aortic Aneurysm: s/p repair w/ stenting GORE, able to have MRI without issue per records. (10) DVT prophylaxis: SCDs, renally dosed lovenox. (11) CODE status: Discussed CODE status at length including difference between FULL code, DNR-CCA and DNR-CC status. Following discussions about the differences in these status, confirmed HCPOA and Living will in place, FULL CODE. Advanced Care Planning Face to Face Time: 18 minutes. Code Visit Inpatient E&M: 47265 Subs Hosp L3 Procedures: 55826 Advncd Care Plan 30 Min
[2018-06-25 07:09] LABS: Magnesium 2.1 mg/dL (1.6-2.6)
[2018-06-25 07:33] LABS: AST(SGOT) 18 U/L (15-37); Alanine Aminotransfer ALT/SGPT 17 U/L (16-61); Alkaline Phosphatase 63 U/L (45-117); Bilirubin, Direct 0.41 mg/dL (0.00-0.30); Globulin 3.6 g/dL (2.2-4.2); Protein, Total 6.6 g/dL (6.4-8.2)
[2018-06-25 07:42] LABS: Hemoglobin A1c 5.1 % (4.2-6.3)
--- NOTE | 2018-06-25 08:13 | PCM.CONS.GEN ---
<Bran Quezada - Last Filed: 06/25/18 11:42> Reason for Consult History of Present Illness: The patient is a 73 year old M [] Past Medical History Past Medical History (Chronic Problems): Chronic Problems H/O thoracic aortic aneurysm repair (Chronic) Essential (primary) hypertension (Chronic) Dyslipidemia (Chronic) Obesity (BMI 30.0-34.9) (Chronic) Allergies No Known Allergies Allergy (Verified 06/24/18 16:39) Home Medications: Ambulatory Orders Medication Instructions Recorded Amlodipine [Norvasc] 10 mg PO DAILY 09/27/16 Ascorbic Acid [Vitamin C] 1,000 mg PO DAILY 09/27/16 Atorvastatin Calcium [Lipitor] 20 mg PO QHS 09/27/16 Cabergoline 1 mg PO TUFR 09/27/16 Metoprolol Tartrate [Lopressor 50 mg PO BID 09/27/16 (beta ashutosh)] Multivitamins,Therapeutic 1 tablet PO DAILY 09/27/16 [Multivitamin] [place]-3 Fatty Acids/Fish Oil 1 capsule PO DAILY 09/27/16 [[place] 3 1,000 mg Softgel] Aspirin E.C. [Ecotrin] 81 mg PO DAILY@0800 06/24/18 Losartan/Hydrochlorothiazide 1 tab PO DAILY 06/24/18 [Hyzaar 100-25 Tablet] Potassium Chloride [K-Dur] 20 meq PO DAILY 06/24/18 Patient Problems: Active and Suspected Problems Acute kidney injury (nontraumatic) (Acute) Hyperbilirubinemia (Acute) Generalized weakness (Acute) Acute respiratory distress (Acute) - Physical Exam Vital Signs Temp Pulse Resp BP Pulse Ox 97.8 F 97 16 117/78 95 06/25/18 08:39 06/25/18 08:44 06/25/18 08:39 06/25/18 08:39 06/25/18 09:21 Oxygen Delivery Method Room Air Weight: 291 lb 10.745 oz Body Mass Index (BMI) 35.2 Intake and Output for Last 24 Hours 06/23/18 06/24/18 06/25/18 23:59 23:59 23:59 Intake Total 1491 / 1491 Output Total 550 / 550 Balance 941 / 941 Laboratory Tests Past 24 Hrs 06/24/18 06/25/18 06/25/18 21:50 05:10 05:10 WBC 10.1 RBC 4.66 Hgb 14.2 Hct 42.9 MCV 92.1 MCH 30.5 MCHC 33.1 RDW 14.4 RDW Differential 47.4 H Plt Count 131 L MPV 9.9 Immature Gran % (Auto) 0.100 Neut % (Auto) 75.9 H Lymph % (Auto) 14.3 L [place] % (Auto) 9.6 Eos % (Auto) 0.0 Baso % (Auto) 0.1 Absolute Neuts (auto) 7.7 Absolute Lymphs (auto) 1.45 Total Counted Not Reportable Haptoglobin Sodium 139 Potassium 3.2 L Chloride 104 Carbon Dioxide 29.0 Anion Gap 6 BUN 21 H Creatinine 1.27 Estim Creat Clear Calc 61.70 Est GFR (MDRD) Af Amer 71 Est GFR (MDRD) Non-Af 59 L BUN/Creatinine Ratio 16.5 Glucose 123 H Hemoglobin A1c Calcium 8.4 L Magnesium Total Bilirubin Direct Bilirubin AST ALT Alkaline Phosphatase Total Protein Albumin Globulin Urine Potassium 79.0 06/25/18 06/25/18 06/25/18 05:10 05:10 05:10 WBC RBC Hgb Hct MCV MCH MCHC RDW RDW Differential Plt Count MPV Immature Gran % (Auto) Neut % (Auto) Lymph % (Auto) [place] % (Auto) Eos % (Auto) Baso % (Auto) Absolute Neuts (auto) Absolute Lymphs (auto) Total Counted Haptoglobin Pending Sodium Potassium Chloride Carbon Dioxide Anion Gap BUN Creatinine Estim Creat Clear Calc Est GFR (MDRD) Af Amer Est GFR (MDRD) Non-Af BUN/Creatinine Ratio Glucose Hemoglobin A1c 5.1 Calcium Magnesium 2.1 Total Bilirubin Direct Bilirubin AST ALT Alkaline Phosphatase Total Protein Albumin Globulin Urine Potassium 06/25/18 05:10 WBC RBC Hgb Hct MCV MCH MCHC RDW RDW Differential Plt Count MPV Immature Gran % (Auto) Neut % (Auto) Lymph % (Auto) [place] % (Auto) Eos % (Auto) Baso % (Auto) Absolute Neuts (auto) Absolute Lymphs (auto) Total Counted Haptoglobin Sodium Potassium Chloride Carbon Dioxide Anion Gap BUN Creatinine Estim Creat Clear Calc Est GFR (MDRD) Af Amer Est GFR (MDRD) Non-Af BUN/Creatinine Ratio Glucose Hemoglobin A1c Calcium Magnesium Total Bilirubin 5.50 H Direct Bilirubin 0.41 H AST 18 ALT 17 Alkaline Phosphatase 63 Total Protein 6.6 Albumin 3.0 L Globulin 3.6 Urine Potassium Assessment/Plan All Active Problems Acute kidney injury (nontraumatic) (Acute) Hyperbilirubinemia (Acute) Generalized weakness (Acute) Acute respiratory distress (Acute) Sepsis (Acute) CAP (community acquired pneumonia) (Acute) Hypokalemia (Acute) I have personally reviewed this patient's history and physical. I was able to additionally obtain records from September 18, 2016 when I saw the patient in the office. He had a previous history of colon polyps in 2005. 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 There was no malignancy at that time. Up until then his most recent colonoscopy was February 24, 2010 with no acute findings by Dr. Crispin Leiva. I updated his colonoscopy on October 01, 2016. Identified a patent ileocolonic anastomosis. There was a diminutive polyp of the distal transverse colon and of the splenic flexure. Final pathology and these were benign My history notes that June 30 4015 he had emergency thoracic aortic dissection. He apparently had to be taken back to surgery that hospitalization and then more recently I believe November 2017 he had a thoracic corset stent graft placed. He has also had a history of pneumonia which required a week of hospitalization at [place] in [address] [facility]. Apparently he was septic at that time. Past history is notable for very heavy cigarette smoking up to 5 packs a day but quit 1977. It is of note that his mother of colon cancer. On this occasion he absolutely denies any abdominal pain. He denies dark colored urine. Apparently had a good appetite yesterday. He was brought to the hospital by his however for fear that he was progressively becoming much more week. Jaundice was also noted. Apparently abnormal liver function tests regarding the bilirubin date back to the year 1999. Laboratory that was obtained here at [place] demonstrates that on September 30, 2017 a total bilirubin was 4.1. On October 07 2017 it was 1.8 and now on admission it was 6. On admission ultrasound his gallbladder is contracted with stones. His liver is enlarged to 22 cm. The common bile duct is normal at 5 mm. The remainder of his liver function tests are completely normal. Repeat total bilirubin today is 5.5 with a direct bilirubin of 0.41 The patient absolutely denies any abdominal pain. He denies any change of bowel habits. He has not noticed any bright red blood per rectum or melena. His weight was variable when he had a pneumonia had some weight loss but his appetite subsequently has regained and he has regained weight. His current body mass noted be 291 pounds. His admission chest x-ray suggests mild pulmonary edema and his BNP was elevated at 292 but patient also has laboratory findings consistent with acute kidney injury. With a bilirubin of 6 HIDA scan likely could not be achieved. I would like to pursue a MRCP as a more definitive means of analysis. I have a low level of suspicion that the patient has acute cholecystitis or generalized weakness related to his gallbladder. The total bilirubin elevation appears to be a very long-term phenomena although current levels appear to be the highest that we have recorded locally. Unfortunately with the patient's significant weakness he would not likely be a good operative candidate. Additionally the patient's is suggesting that she may transfer him to [place]. I appreciate the opportunity of assisting with her surgical care and will await his MRCP. Bran Quezada M.D., F.A.C.S. <Sia Patricio - Last Filed: 06/25/18 12:45> Problem List (1) Hyperbilirubinemia Status: Acute Reason for Consult Date of Consultation: 06/25/18 Reason for Consultation: Hyperbilirubinemia. Cholelithiasis. History of Present Illness: The patient is a 73 year old M who presents with shortness of breath and weakness x 2 days. Patient noted a single episode of pneumonia last October. He noted his symptoms resembled the symptoms from last October. Patient notes a history of an ascending aortic dissection in June of 2015. He had emergency cardiothoracic surgery at [facility]. He had a redo sternotomy ascending arch replacement in November 2015 due to an enlarging additional aneurysm. This procedure was completed at [facility]. Patient also had a stent graft placement at the sinotubular junction due to another aneurysm in April 2016. Patient's quality audit representative is Dr. Dean. He is not currently taking any blood thinning medications. Patient was also noted to have increased bilirubin on admission. Abdominal ultrasound was notable for cholelithiasis. Patient is not currently having abdominal pain/discomfort. He denies ever having RUQ pain/discomfort. Patient denies having gallbladder disease. He denies being told of having hyperbilirubinemia. Patient notes history of macroprolactinoma which was diagnosed in 2001. Patient denies change in bowel habits. He notes his last colonoscopy was in 2016 which noted patent anastomosis, otherwise unremarkable. Patient notes history in 2005 a right kwabena-colectomy for non-resectable colon polyp. Pathology demonstrated tubulovillous adenomas. No malignancy. Patient is a former smoker. He quit in 1977. Total Bilirubin on admission 6.0----> today 5.5. AST, ALT, Alk Phos unremarkable. Past Medical History Allergies No Known Allergies Allergy (Verified 06/24/18 16:39) Surgical History: - - TAA repair Psychiatric History: No pertinent psych hx Lives: Spouse/ Significant Other Smoking Status: Former smoker - *Family History Maternal History Items: Cancer - colon Paternal History Items: Heart Disease Sibling History Items: Cancer, Heart Disease Review of Systems Constitutional: Reports: Weakness, Fatigue Eyes: Reports: - - Jaundice HEENT: Denies: Head Aches, Sinus Congestion, Sinus Drainage Cardiovascular: Denies: Chest Pain, Palpitations Respiratory: Reports: Shortness of Breath Gastrointestinal: Denies: Abdominal Pain, Nausea, Vomiting Genitourinary: Denies: Dysuria Musculoskeletal: Denies: Joint Pain, Joint Tenderness Skin: Reports: Jaundice Neurological: Reports: Balance problems Psychiatric: Denies: Anxiety, Depression, Homicidal Ideations, Suicidal Ideations Hematologic/ Lymphatic: Denies: Easy Bruising, Easy Bleeding - Physical Exam General: Alert, Oriented x3, Cooperative HEENT: Atraumatic, PERRLA, EOMI, Normocephalic, - - Jaundice appearance Neck: Supple, No JVD, Negative Carotid Bruits Lungs: Clear to auscultation, Normal air movement Cardiovascular: Regular rate, No murmurs Abdomen: Bowel Sounds Present, Soft, Non Tender, Obese Extremities: No edema, Capillary Refill Less than 3 Seconds Skin: No rashes, No breakdown Musculoskeletal: No Tenderness to Palpation of Joints or Extremities Neurological: Neuro grossly intact Psych/Mental Status: Normal Affect, Appropriate Vital Signs Temp Pulse Resp BP Pulse Ox 99.6 F H 89 18 123/73 H 92 06/25/18 05:45 06/25/18 05:45 06/25/18 05:45 06/25/18 05:45 06/25/18 05:45 Oxygen Delivery Method Room Air Weight: 291 lb 10.745 oz Body Mass Index (BMI) 35.2 Intake and Output for Last 24 Hours 06/23/18 06/24/18 06/25/18 23:59 23:59 23:59 Intake Total 1491 / 1491 Output Total 550 / 550 Balance 941 / 941 Laboratory Tests Past 24 Hrs 06/24/18 06/25/18 06/25/18 21:50 05:10 05:10 WBC 10.1 RBC 4.66 Hgb 14.2 Hct 42.9 MCV 92.1 MCH 30.5 MCHC 33.1 RDW 14.4 RDW Differential 47.4 H Plt Count 131 L MPV 9.9 Immature Gran % (Auto) 0.100 Neut % (Auto) 75.9 H Lymph % (Auto) 14.3 L [place] % (Auto) 9.6 Eos % (Auto) 0.0 Baso % (Auto) 0.1 Absolute Neuts (auto) 7.7 Absolute Lymphs (auto) 1.45 Total Counted Not Reportable Haptoglobin Sodium 139 Potassium 3.2 L Chloride 104 Carbon Dioxide 29.0 Anion Gap 6 BUN 21 H Creatinine 1.27 Estim Creat Clear Calc 61.70 Est GFR (MDRD) Af Amer 71 Est GFR (MDRD) Non-Af 59 L BUN/Creatinine Ratio 16.5 Glucose 123 H Hemoglobin A1c Calcium 8.4 L Magnesium Total Bilirubin Direct Bilirubin AST ALT Alkaline Phosphatase Total Protein Albumin Globulin Urine Potassium 79.0 06/25/18 06/25/18 06/25/18 05:10 05:10 05:10 WBC RBC Hgb Hct MCV MCH MCHC RDW RDW Differential Plt Count MPV Immature Gran % (Auto) Neut % (Auto) Lymph % (Auto) [place] % (Auto) Eos % (Auto) Baso % (Auto) Absolute Neuts (auto) Absolute Lymphs (auto) Total Counted Haptoglobin Pending Sodium Potassium Chloride Carbon Dioxide Anion Gap BUN Creatinine Estim Creat Clear Calc Est GFR (MDRD) Af Amer Est GFR (MDRD) Non-Af BUN/Creatinine Ratio Glucose Hemoglobin A1c 5.1 Calcium Magnesium 2.1 Total Bilirubin Direct Bilirubin AST ALT Alkaline Phosphatase Total Protein Albumin Globulin Urine Potassium 06/25/18 05:10 WBC RBC Hgb Hct MCV MCH MCHC RDW RDW Differential Plt Count MPV Immature Gran % (Auto) Neut % (Auto) Lymph % (Auto) [place] % (Auto) Eos % (Auto) Baso % (Auto) Absolute Neuts (auto) Absolute Lymphs (auto) Total Counted Haptoglobin Sodium Potassium Chloride Carbon Dioxide Anion Gap BUN Creatinine Estim Creat Clear Calc Est GFR (MDRD) Af Amer Est GFR (MDRD) Non-Af BUN/Creatinine Ratio Glucose Hemoglobin A1c Calcium Magnesium Total Bilirubin 5.50 H Direct Bilirubin 0.41 H AST 18 ALT 17 Alkaline Phosphatase 63 Total Protein 6.6 Albumin 3.0 L Globulin 3.6 Urine Potassium Assessment/Plan I have been asked to evaluate this patient in conjunction with Dr. Quezada Impression: Hyperbilirubinemia. Jaundice appearance. Shortness of breath. Plan: I have discussed this patient with Dr. Quezada. Recommend MRCP for further evaluation. Patient's records have indicated elevation of his bilirubin since 1999, however 6.0 is the highest recorded bilirubin. Patient has had the opportunity to ask and have questions answered. Patient verbally understands and agrees with the plan. Dr. Quezada will evaluate this patient independently. Thank you for allowing us to participate in this patient's care. Code Visit Office Visits / Consults: [id number] IP Consult L3
[2018-06-25] MEDS: Aspirin E.C. 81 MG Tablet PO (08:42)
[2018-06-25] MEDS: amLODIPine 10 MG Tablet PO (08:42)
[2018-06-25] MEDS: Omega-3 Acid Ethyl Esters 1 GM Capsule PO (08:43)
[2018-06-25] MEDS: Multivitamins,Therapeutic Tablet 1 TABLET PO (08:43)
[2018-06-25] MEDS: Metoprolol Tartrate 50 MG Tablet PO (08:44)
[2018-06-25] MEDS: Ascorbic Acid 500 MG Tablet 1000 MG PO (08:44)
[2018-06-25] MEDS: 0.9% Normal Saline 1,000 ML 75 ML IV (08:58)
[2018-06-25] MEDS: Ipratropium/Albuterol Sulfate 3 ML AMPUL.NEB INHALATION (14:24)
[2018-06-25] MEDS: Acetaminophen 325 MG Tablet 650 MG PO (15:12)
[2018-06-25 15:17] LABS: Mucous, Urine 0 SEEN /hpf (<or=2+)
[2018-06-25 15:33] LABS: Color, Urine Yellow (Yellow); Glucose, Dipstick Normal (Normal); Ketone-Dipstick 5 mg/dl (Negative); Leukocyte Esterase-Dipstick 25 /ul (Negative); Nitrite-Dipstick Negative (Negative); Occult Blood-Urine 250 /ul (Negative); Protein-Dipstick 100 mg/dl (Negative); Specific Gravity, Urine 1.025 (1.002-1.030); Urine Bilirubin Dipstick Negative (Negative); Urine Clarity Cloudy (Clear); Urine Urobilinogen 1 mg/dl (Normal)
[2018-06-25 15:49] LABS: Fine Granular Cast- Urine 5-10 SEEN /lpf (0-5)
[2018-06-25 15:51] LABS: Amorphous Sediment 2+; Bacteria 4+ /hpf (None Seen); Squamous Epithelial Cells - UA 0-5 SEEN /hpf (0-5); White Blood Cells 0-5 SEEN /hpf (0-5)
[2018-06-25 15:52] LABS: Coarse Granular Cast 0-5 SEEN /lpf (0-5 /lpf); Red Blood Cells-Urine 0-5 SEEN /hpf (0-5)
[2018-06-25] MEDS: Piperacil/Tazobactam 3.375 GM/50 ML ML IV (16:07)
[2018-06-25 17:06] LABS: M R Staph aureus DNA By PCR Negative (Negative); Probe Check PASS; Specimen Processing Control PASS
[2018-06-25] MEDS: 0.9% Normal Saline 1,000 ML 999 ML IV (17:15)
--- NOTE | 2018-06-25 17:25 | PCM.DC.SUM ---
Discharge Date and Diagnosis - Problem List Patient Problems: Active and Suspected Problems Acute kidney injury (nontraumatic) (Acute) Hyperbilirubinemia (Acute) Generalized weakness (Acute) Acute respiratory distress (Acute) Date of Admission: 06/24/18 Date of Discharge: 06/25/18 - Primary Discharge Diagnosis Active and Suspected Problems (1) Hypotensive, Unclear Specific Etiology, Possibly Sepsis (Possible Severe, Possible Septic Shock, pending LA and initial evaluation only with transfer to Main ICU prior to resulting work-up given severity of appearance), Unclear Exact Source, Possible Chronic Cholecystitis w/ Cholelithiasis AND Possible Acute AAA w/ dissection (2) Acute kidney injury: Secondary to dehydration, suspected hypovolemia, possibly acute infection, unclear specific source (3) Hyperbilirubinemia, Acute, Unclear Etiology (Records also not prior history of elevation, intermittent, unclear etiology) with Possible Chronic Cholecystitis (4) Acute Hypoxic Respiratory Failure, Unclear Etiology, possibly secondary to #1 (CXR without acute process, ECHO without acute findings) (5) Malaise, Weakness, Debility secondary to #1, #2, #3, #4 (6) Hypokalemia (7) Hyperglycemia, mild, normal HgBA1, secondary to #1 (8) Initial Concern for Possible Chronic Underlying CHF, Unclear Type, BNP mildly elevated, CXR not marked appearing, ECHO unremarkable (7) Hypertension (8) Hyperlipidemia (9) Hx Thoracic Aortic Aneurysm s/p repair w/ stenting GORE (able to have MRI) (10 CODE status: FULL. - Secondary Discharge Diagnosis Chronic Problems H/O thoracic aortic aneurysm repair (Chronic) Essential (primary) hypertension (Chronic) Dyslipidemia (Chronic) Obesity (BMI 30.0-34.9) (Chronic) Hospital Course and Treatment Dr. Quezada General and Vascular Surgery Dr. Knight ICU Operations: None Procedures: EKG Summary of Care Provided: The patient is a 73 y/o M w/ PMHx: HTN, HLD, Former Tobacco use, Hx Thoracic Aortic Aneurysm Repair s/p stenting who presented to the [facility] ED on 06/24/18 with history of progressively worsening debility, weakness and dyspnea x 2 weeks. Unclear specific etiology, possibly secondary to electrolyte disturbance, ISSAC, ? chronic cholecystitis, possible underlying undiagnosed CHF as work-up ED presentation only notable for mild leukocytosis and elevated bilirubin. Admitted to NC, admission BUN/Cr 23/1.47, prior baseline creatinine noted to be 0.8-0.9, continued hydration, held nephrotoxic medications, electrolytes supplemented as needed, mild hyperglycemia with normal HgBA1c, elevated Bilirubin of unclear etiology with some records obtained and noted prior, intermittently elevated and no clear work-up with admission CMP w/ TBili 6, AST/ALT 14/18, Liver US w/ stones and contracted gallbladder consistent with chronic cholecystitis with no acute process, multiple right renal cysts. Given liver US findings, generalized complaints, requested Surgery consultation, Dr. Quezada. Also given unclear dyspnea complaints, mild BNP elevation, not marked CXR but possible mild congestion, ECHO obtained which was unremarkable. Patient maintained on IVFs, NPO status pending MRCP and onset fever with zosyn initiated. MRSA screen negative however, given worsened presentation Vanc 1,500 mg IV x 1 additionally ordered in with Zosyn. MRCP resulted w/ abdominal aortic aneurysm with dissection, choledocholithiasis with no evidence of choledocholithiasis or biliary duct dilation, trace left pleural effusion, bilateral renal cysts. Given patient notable MRCP findings and sudden worsening status with hypotension with systolic blood pressure in the 70s immediately discussed case with vascular surgeon and with shipping and receiving weigher. Patient transitioned to the ICU with wide open IV fluid boluses with improvement of BP. Vascular surgeon/general surgeon less suspicious for acute dissection as etiology. Patient presentation concern for underlying septic shock versus severe sepsis as etiology for current presentation with unclear exact source aside from possibility of chronic cholecystitis with cholelithiasis; however, given severity of presentation, still possibility of acute dissection therefore as discussed with ICU team at [facility] transfer arranged with air transport per [facility] direction. Repeat labs including CBC, CMP, coags, T+S, Bld Cx x 2 and LA requested upon ICU transition. Patient transition to the ICU and vital signs as noted did improve, current BP 96/55, respiratory rate 24, 94% on 2 L nasal cannula, heart rate 86, temperature 98.4. ICU TRANSITION: Physical Examination: General: awake, alert, oriented x 3 and cooperative, seated upright in the ICU bed, increased RR, accessory muscle usage. Skin: jaundiced color, normal turgor, no cyanosis. HEENT: AT/NC, EOMI, PERRLA, mildly dry MM, no carotid bruits or JVD noted. Lungs: Continued diminished BS BL bases, increased effort, increased RR, accessory muscle usage, no rales, ronchi or wheezing. Heart: Regular rate and rhythm; no gallop, rub audible. Abdomen: soft, obese, remains NTTP, ND, normal BS. Extremities: no cyanosis, clubbing, BL LE pedal to distal pinzon, non-pitting. Neurological: patient awake, alert, oriented x 3; cognitive function intact; pupils equally reactive to light and accomodation; cranial nerves II-XII grossly normal, moving all 4 extremities, no focal deficits, strength severely globally decreased. Psychiatric: affect appears fatigued, no acute evidence of depressive or anxiety feelings. Critical Care Time: Time for assessment of patient, review of studies with family, consultation team and acute interventions w/ life flight to main for possible acute AAA dissection: 75 minutes. Home Medications: Medications to take at Discharge Amlodipine [Norvasc] 10 mg PO DAILY 09/27/16 Ascorbic Acid [Vitamin C] 1,000 mg PO DAILY 09/27/16 Atorvastatin Calcium [Lipitor] 20 mg PO QHS 09/27/16 Cabergoline 1 mg PO TUFR 09/27/16 Metoprolol Tartrate [Lopressor (beta ashutosh)] 50 mg PO BID 09/27/16 Multivitamins,Therapeutic [Multivitamin] 1 tablet PO DAILY 09/27/16 [place]-3 Fatty Acids/Fish Oil [[place] 3 1,000 mg Softgel] 1 capsule PO DAILY 09/27/16 Aspirin E.C. [Ecotrin] 81 mg PO DAILY@0800 06/24/18 Losartan/Hydrochlorothiazide [Hyzaar 100-25 Tablet] 1 tab PO DAILY 06/24/18 Potassium Chloride [K-Dur] 20 meq PO DAILY 06/24/18 Primary Care Physician: Daniel Foster [Primary Care Provider] - Medical Necessity - Tobacco Use Smoking Status: Former smoker Meaningful Use Info Meaningful Use Diagnoses (Choose all that apply): None applicable Code Visit Inpatient E&M: 31613 Disch Hosp Procedures: 74986 Critial Care 1st Hr
--- NOTE | 2018-06-25 17:41 | NURSING ---
[facility] transport at bedside inserting ART line and preparing for air transport. Vitals currently stable, BP 117/63.
[2018-06-25 17:56] LABS: International Normalized Ratio 1.4
[2018-06-25 17:57] LABS: Partial Thromboplast Time 33.1 Seconds (24.1-36.2)
[2018-06-25 18:02] LABS: ALB/GLOB Ratio 0.7 RATIO (0.9-2.4); AST(SGOT) 16 U/L (15-37); Alanine Aminotransfer ALT/SGPT 16 U/L (16-61); Albumin, Serum 2.7 g/dL (3.2-5.0); Alkaline Phosphatase 53 U/L (45-117); Anion Gap 6 (5-15); BUN 20 mg/dL (7-18); BUN/Creat Ratio 14.8 RATIO (10-20); Chloride 106 mmol/L (98-107); Creatinine, Serum 1.35 mg/dL (0.70-1.30); EST Glomerular Filtration Rate 55 mL/min (>60); Est Glom Filt Rate - Afr Amer 66 mL/min (>60); Estimated Creatinine Clearance 58.05 ml/min; Globulin 3.8 g/dL (2.2-4.2); Glucose 114 mg/dL (74-106); Potassium 3.3 mmol/L (3.5-5.1); Protein, Total 6.5 g/dL (6.4-8.2); Sodium Level 140 mmol/L (136-145)
[2018-06-25 18:03] LABS: Lactic Acid 0.8 mmol/L (0.4-2.0)
[2018-06-26 14:38] LABS: Haptoglobin 278 mg/dL (34-200)
== END 2018-06-25 17:45 | disposition short-term general hospital (02) | DRG 871 ==
LOC: ED 20:00 → MS3 20:17 → ICU 06-25 16:59
PROVIDERS: Surgery; Admitting Provider Hospitalist; Emergency Provider Emergency Medicine; Family Provider Family Medicine; PCP Family Medicine; Visit Provider Family Medicine
DX: A41.9 Sepsis, unspecified organism (principal); R65.21 Severe sepsis with septic shock; J96.01 Acute respiratory failure with hypoxia; N17.9 Acute kidney failure, unspecified; K80.10 Calculus of gallbladder with chronic cholecystitis without obstruction; E87.6 Hypokalemia; E78.5 Hyperlipidemia, unspecified; Z87.891 Personal history of nicotine dependence; E86.0 Dehydration; E80.6 Other disorders of bilirubin metabolism; E66.9 Obesity, unspecified; Z68.35 Body mass index [BMI] 35.0-35.9, adult; I11.0 Hypertensive heart disease with heart failure; I50.9 Heart failure, unspecified; R73.9 Hyperglycemia, unspecified; R53.81 Other malaise
CPT/HCPCS: 36415; 71046; 74181; 76705; 80048; 80053; 80076; 81001; 83010; 83036; 83605; 83615; 83735; 83880; 84133; 84443; 84484; 85025; 85610; 85730; 86850; 86900; 86920; 86922; 87086; 87088; 87641; 93005; 93306; 94640; 97166; 97802; 99283; J7030; A4216